=== PATIENT | male | born 1950 | race Caucasian/White ===

== ENCOUNTER 2018-04-22 13:19 | Observation (INO) ==
--- NOTE | 2018-04-22 13:30 | Emergency Department Note ---
ED Disposition Clinical Impression: Palpitations Vomiting Qualifiers: Vomiting type: unspecified Vomiting Intractability: non-intractable Nausea presence: with nausea Qualified Code(s): R11.2 - Nausea with vomiting, un specified Disposition: Still a Patient Condition on Discharge: Fair - Critical Care Critical Care Time: No Attestation: On , the high probability of a clinically significant, sudden or life threatening deterioration of the following system(s) required my full and direct attention, intervention and personal management. The time I documented below is in addition to time spent performing reported procedures but includes the following listed in this critical care notation. Medical Decision Making - [place] Inquiry Pt receiving controlled substance: No Vital Signs: 04/22/18 13:25 04/22/18 14:19 04/22/18 16:24 Temperature 98.2 F 98.3 F Temperature Source Oral Temporal Artery Scan Pulse Rate 97 H Pulse Rate [Right Brachial] 78 56 L Respiratory Rate 18 17 Blood Pressure 133/76 Blood Pressure [Right Arm] 179/76 H 120/74 Blood Pressure Mean [Right Arm] 110 89 Blood Pressure Source Automatic Cuff Blood Pressure Source [Right Arm] Automatic Cuff Automatic Cuff Blood Pressure Position Sitting Blood Pressure Position [Right Arm] Sitting Sitting 02 Sat by Pulse Oximetry 95 96 Oxygen Delivery Method Room Air Room Air - Lab Data Lab Results 04/22/18 13:30: WBC 13.8 H, RBC 5.41, Hgb 16.3, Hct 48.8, MCV 90.3, MCH 30.1, MCHC 33.3, RDW 13.2, Plt Count 280, MPV 8.4, Neut % (Auto) 87.0 H, Lymph % (Auto) 8.7 L, [place] % (Auto) 3.3, Eos % (Auto) 0.6, Baso % (Auto) 0.4, Neut # (Auto) 12.0 H, Lymph # (Auto) 1.2, [place] # (Auto) 0.5, Eos # (Auto) 0.1, Baso # (Auto) 0.1, Total Counted 100, Neutrophils % (Manual) 87 H, Lymphocytes % (Manual) 9 L, Monocytes % (Manual) 4, Platelet Estimate Normal, RBC Morphology Normal 04/22/18 13:30: Sodium 138, Potassium 3.5, Chloride 103, Carbon Dioxide 25, Anion Gap 13.5, BUN 16, Creatinine 0.88, Estimated Creat Clear 105, Estimated GFR 86, Est GFR ( Amer) 104, Glucose 135 H, Calcium 9.4, Troponin I < 0.02 Result diagrams: 04/22/18 13:30 04/22/18 13:30 Orders (Tests/Meds): ED MEDICATIONS Discontinued Medications Generic Name Dose Route Start Last Admin Trade Name Freq PRN Reason Stop Dose Admin Ondansetron HCl 4 mg 04/22/18 15:45 04/22/18 15:50 Zofran 4mg/2ml Vial IV 04/22/18 15:46 4 mg ONCE ONE Administration ORDERS Category Date Time Status Magnesium Stat Lab 04/22/18 13:30 Received - Radiology Data #1 Image(s): Chest Image Reviewed: Yes I have reviewed radiologist's interpretation FINDINGS: The cardiomediastinal silhouette and pulmonary vascularity are within normal limits. The lungs are clear without infiltrates, suspicious nodules, or pleural effusions. No acute bony abnormalities. There is a total shoulder prosthesis right side. IMPRESSION: Negative chest, no acute finding Dictated By: Luis Arredondo Signed By: <Electronically signed by Luis Arredondo in [place]> 04/22/18 1419 - ECG Data Tracing #1 EKG interpreted by Evert Oseguera MD: Rhythm: sinus Rate: 84 [place]: normal Ectopy: none Conduction: normal ST Segment Changes: none T Wave Changes: Nonspecific, 1 and aVL. Q Waves: none Prior electrocardiagrams reviewed. No change from prior tracings. T wave changes are present on some prior tracings. - Physician Consults Physician Consulted: [place] Time: 15:47 Reason -: Admission Comment/Response: He has not seen the patient in over a year. Atenolol was started, apparently by cardiology, since the last time he saw the patient. Prefers to admit the patient to the hospital. We discussed the patient's clinical information, including history, exam, laboratory and radiology results and ED course. Per hospital procedure, I will write temporary bridge inpatient orders on the patient. Specific orders requested by the admitting physician: campus monitor, cardiology consult - Reevaluation(s) Time: 15:49 Reevaluation #1: profuse vomiting Medical Decision Narrative: campus monitor shows sinus rhythm with sinus arrhythmia and premature atrial contractions. Prior Heart Cath: IMPRESSION: 1. Moderate coronary artery disease as described above 2. Hyperdynamic ventricle consistent with hypertensive heart disease 3. Moderately elevated LVEDP PLAN: 1. Medical management is most warranted. 2. Increase antianginal medications 3. Treat hypertension 4. Risk factor modification 5. LDL less than 55 6. Avoidance of tobacco products 7. Patient would probably benefit from diltiazem and or verapamil with possible low dose diuretics such as Lasix and spironolactone in order to decrease LVEDP <Electronically signed by Joaquim See MD in [place]> 03/21/17 1159 General Adult HPI - General Chief complaint: Chest Pain Stated complaint: heart palpitations Time Seen by Provider: 04/22/18 14:30 - History of Present Illness HPI narrative: Complains of palpitations. This is an ongoing problem, he has had it for years. He is on a beta-jean for that condition. He states that he has had increased palpitations for 2 weeks, worse today. Caused him to be nauseated and throw up, feels his heart beating up into his throat. Denies chest pain or shortness of breath. States he has increased his dose of atenolol to twice a day for the past 3-4 days because of the increased palpitations. States had a cardiac cath by Dr. See a couple of years ago, 30-40% blockages, no stents. - Related Data Home Medications Medication Instructions Recorded Confirmed aspirin 81 mg tablet,delayed 81 mg PO QDAY 05/02/17 04/22/18 release atenolol 25 mg tablet 25 mg PO QDAY tab 05/02/17 04/22/18 atorvastatin 40 mg tablet 40 mg PO QDAY 05/02/17 04/22/18 glipizide 5 mg tablet 5 mg PO DAILY 05/02/17 04/22/18 lisinopril 20 1 tab PO QDAY 05/02/17 04/22/18 mg-hydrochlorothiazide 12.5 mg tablet omeprazole 20 mg capsule,delayed 20 mg PO ONCE 05/02/17 04/22/18 release Insulin Aspart [Novolog] 50 unit SQ BID 02/26/18 04/22/18 Metformin HCl [Fortamet] 500 mg PO DAILY 02/26/18 04/22/18 glipiZIDE [Glipizide ER] 5 mg PO DAILY 02/26/18 04/22/18 Allergies Allergy/AdvReac Type Severity Reaction Status Date / Time No Known Allergies Allergy Unverified 04/15/17 14:40 [facility] History - Hepatitis A Screen Attestation statement:: This patient has been screened for Hepatitis A risk factors. I have reviewed the patient's past medical history: Yes Medical History: Reports:: Coronary Artery Disease, Diabetes Mellitus Type 2, Hyperlipidemia, Hypertension Denies:: Cancer, Diabetes Mellitus Type 1, MRSA Amputation: No Comment: gallbladder removal, knee replacement, shoulder replacement, heart cath - Social History Smoking Status: Former smoker Alcohol Intake: never Family Hx:: Non-contributory (Radhames Parkinson White in a sibling), Cancer, Coronary Artery Disease ROS Obtained: Yes All systems reviewed & no additional complaints - Cardiovascular Cardiovascular: Denies chest pain, Reports palpitations - Gastrointestinal Gastrointestingal: Reports: nausea, vomiting. Denies: abdominal pain, diarrhea Physical Exam - General General appearance: alert, in no apparent distress - Head Head exam: atraumatic, normocephalic - ENT ENT exam: Present: mucous membranes moist - Neck Neck exam: Present: normal inspection, trachea midline - Chest Chest inspection: Present: normal inspection, symmetric chest wall rise - Respiratory Respiratory exam: Present: normal lung sounds bilaterally. Absent: respiratory distress - Cardiovascular Cardiovascular exam: Present: regular rate, normal heart sounds, other (Extrasystoles during exam) - Abdominal Exam Abdominal exam: Present: soft. Absent: distention, tenderness - Extremities Exam Extremities exam: Present: normal inspection. Absent: calf tenderness - Neurological Exam Neurological exam: Present: alert, oriented X3 - Psychiatric Psychiatric exam: Present: normal affect, normal mood - Skin Skin exam: Present: warm, dry
[2018-04-22 14:10] LABS: Basophils # 0.1 K/mm3 (0-0.2); Basophils % 0.4 % (0.1-2.0); Eosinophils # 0.1 K/mm3 (0.0-0.4); Eosinophils % 0.6 % (0.1-12.0); Hematocrit 48.8 % (42.0-52.0); Hemoglobin 16.3 g/dL (14.1-18.0); Lymphocytes # 1.2 K/mm3 (0.7-4.5); Lymphocytes % 8.7 % (10-50); Mean Corpuscular HGB Conc 33.3 g/dL (31.8-35.4); Mean Corpuscular Hemoglobin 30.1 pg (27.0-31.2); Mean Corpuscular Volume 90.3 fl (80-94); Mean Platelet Volume 8.4 fl (7.4-10.4); Monocytes # 0.5 K/mm3 (0.1-1.0); Monocytes % 3.3 % (1.7-9.3); Platelet Count 280 K/mm3 (142-424); Red Blood Count 5.41 M/mm3 (4.60-6.20); Red Cell Distribution Width 13.2 % (11.5-17.5); White Blood Count 13.8 K/mm3 (4.8-10.8)
[2018-04-22 14:17] LABS: Anion Gap 13.5 mEq/L (5-15); Blood Urea Nitrogen 16 mg/dL (7-18); Calcium 9.4 mg/dL (8.5-10.1); Carbon Dioxide 25 mmol/L (21.0-32.0); Chloride 103 mmol/L (98-107); Glucose 135 mg/dL (74-106); Potassium 3.5 mmoL/L (3.5-5.1); Sodium 138 mmol/L (136-145)
[2018-04-22 14:21] LABS: Lymphocytes % 9 % (10-50); Monocytes % 4 % (2-9); Neutrophils % 87 % (42-76); RBC Morphology Normal; Total Cells Counted 100
--- NOTE | 2018-04-22 17:17 | History & Physical Report ---
*Admission Date: 04/22/18 *Chief complaint: palpitations, vomiting *History of present illness: Mr. Oneill is a 68-year-old male who has had palpitations for years and used to be seen by Dr. Hernandez. Dr. Hernandez placed him on atenolol and he has not had problems with palpitations and flutters up until 3 weeks ago. He states he has had constant flutters for 3 weeks and this causes him to get nauseated. He presented to the emergency room today for evaluation and did vomit 3 times while in the ER. He states his acid reflux has been worse over the past 3 weeks as well. It was felt he would need to be admitted and monitored overnight with a cardiology consult. He has seen Dr. See in the past and had a heart cath. No stents were placed at that time. [facility] History Medical History: Reports:: Arrhythmia, Coronary Artery Disease, Diabetes Mellitus Type 2, Gastroesophageal Reflux Disease(GERD), Hyperlipidemia, Hypertension Denies:: Cancer, Diabetes Mellitus Type 1, MRSA Other Medical History: Reports: Cataracts Laterality Cases: Left: Partial Knee Replacement, Right: Arthroscopy Shoulder, Total Knee Replacement Other Surgeries: Yes: Cardiac Catheterization, Cholecystectomy, Colonoscopy Amputation: No Fractures: Yes ((L) leg) - *Social History Educational Level: Completed High School Smoking Status: Former smoker Alcohol Intake: never Occupational Status: retired Housing: house Household Members: spouse - Psychiatric History Expresses thoughts of harming self/others: None Suicide Plan Description: No Plan *Family Hx:: Cancer, Coronary Artery Disease, Diabetes, Hyperlipidemia, Hypertension Review of Systems - Constitutional Denies chills, Denies fever(s), Denies weakness - Eyes Denies blurry vision, Denies double vision - ENT Denies nasal congestion, Denies sore throat - *Cardiovascular Reports rapid, pounding, or irregular heartbeat, Denies chest pain - *Respiratory Denies cough, Denies shortness of breath - *Gastrointestinal Reports nausea, Reports vomiting, Denies abdominal pain, Denies loose stools - *Genitourinary Denies difficulty urinating, Denies painful urination - *Musculoskeletal Denies joint pain - *Neurologic Denies headache(s), Denies dizziness, Denies weakness Meds Home Medications Medication Instructions Recorded Confirmed Type aspirin 81 mg tablet,delayed 325 mg PO QDAY 05/02/17 04/22/18 History release atenolol 25 mg tablet 25 mg PO QDAY tab 05/02/17 04/22/18 History atorvastatin 40 mg tablet 40 mg PO QDAY 05/02/17 04/22/18 History glipizide 5 mg tablet 5 mg PO DAILY 05/02/17 04/22/18 History lisinopril 20 1 tab PO QDAY 05/02/17 04/22/18 History mg-hydrochlorothiazide 12.5 mg tablet omeprazole 20 mg capsule,delayed 20 mg PO BID 05/02/17 04/22/18 History release Insulin Aspart [Novolog] 50 unit SQ BID 02/26/18 04/22/18 History Metformin HCl [Fortamet] 1,000 mg PO DAILY 02/26/18 04/22/18 History Allergies Allergy/AdvReac Type Severity Reaction Status Date / Time No Known Allergies Allergy Verified 04/22/18 16:31 Exam Vital signs and Labs for Last 24 Hours: Temp Pulse Resp BP Pulse Ox 97.7 F 87 18 142/73 H 93 L 04/22/18 16:47 04/22/18 16:47 04/22/18 16:47 04/22/18 16:47 04/22/18 16:47 Laboratory Results - last 24 hr 04/22/18 13:30: WBC 13.8 H, RBC 5.41, Hgb 16.3, Hct 48.8, MCV 90.3, MCH 30.1, MCHC 33.3, RDW 13.2, Plt Count 280, MPV 8.4, Neut % (Auto) 87.0 H, Lymph % (Auto) 8.7 L, [place] % (Auto) 3.3, Eos % (Auto) 0.6, Baso % (Auto) 0.4, Neut # (Auto) 12.0 H, Lymph # (Auto) 1.2, [place] # (Auto) 0.5, Eos # (Auto) 0.1, Baso # (Auto) 0.1, Total Counted 100, Neutrophils % (Manual) 87 H, Lymphocytes % (Manual) 9 L, Monocytes % (Manual) 4, Platelet Estimate Normal, RBC Morphology Normal 04/22/18 13:30: Sodium 138, Potassium 3.5, Chloride 103, Carbon Dioxide 25, Anion Gap 13.5, BUN 16, Creatinine 0.88, Estimated Creat Clear 105, Estimated GFR 86, Est GFR ( Amer) 104, Glucose 135 H, Calcium 9.4, Troponin I < 0.02 04/22/18 13:30: Magnesium 1.6 I & O for Last 24 hours: Intake & Output 04/20/18 04/21/18 04/22/18 04/23/18 11:59 11:59 11:59 11:59 Intake Total 1000 / 1000 Balance 1000 / 1000 Weight 229 lb 6.996 oz - Constitutional no acute distress - *Routine HEENT Exam Head: Present: normocephalic Eye: Present: EOMI, PERRL ENT: Present: mucous membranes moist - *Routine Neck Exam Present: supple. Absent: lymphadenopathy - *Routine Respiratory Exam Present: CTA bilaterally - *Routine Cardiovascular Exam Present: RRR (with frequent ectopics) - *Routine Abdominal Exam Present: soft, normoactive bowel sounds. Absent: tenderness - *Routine Extremities Exam Absent: cyanosis, clubbing, edema - *Routine Skin Exam Present: warm. Absent: rash - *Routine Neurological Exam Present: alert, oriented X3 H&P: Result - Impressions CXR - nothing acute Assessment and Plan (1) Sinus arrhythmia Current visit: No Status: Acute Category: Medical Code(s): I49.8 - Other specified cardiac arrhythmias (2) Palpitations Current visit: Yes Status: Acute Category: Medical Code(s): R00.2 - Palpitations (3) Vomiting Current visit: Yes Status: Acute Qualifiers: Vomiting type: unspecified Vomiting Intractability: non-intractable Nausea presence: with nausea Qualified Code(s): R11.2 - Nausea with vomiting, unspecified Category: Medical Code(s): R11.10 - Vomiting, unspecified (4) CAD (coronary artery disease) Current visit: No Status: Chronic Category: Medical Code(s): I25.10 - Atherosclerotic heart disease of [place] coronary artery without angina pectoris (5) HLD (hyperlipidemia) Current visit: No Status: Chronic Category: Medical Code(s): E78.5 - Hyperlipidemia, unspecified (6) HTN (hypertension) Current visit: No Status: Chronic Category: Medical Code(s): I10 - Essential (primary) hypertension - Assessment and plan all Dx Assessment and Plan for all problems:: Patient will be admitted and started on a cafeteria monitor. Cardiology will be consulted.
[2018-04-23 07:05] LABS: Basophils % 0.3 % (0.1-2.0); Eosinophils # 0.1 K/mm3 (0.0-0.4); Eosinophils % 0.4 % (0.1-12.0); Hemoglobin 15.8 g/dL (14.1-18.0); Lymphocytes # 0.7 K/mm3 (0.7-4.5); Mean Corpuscular HGB Conc 33.6 g/dL (31.8-35.4); Mean Corpuscular Hemoglobin 30.6 pg (27.0-31.2); Mean Corpuscular Volume 91.2 fl (80-94); Mean Platelet Volume 8.5 fl (7.4-10.4); Monocytes # 0.4 K/mm3 (0.1-1.0); Monocytes % 3.7 % (1.7-9.3); Neutrophils # 10.3 K/mm3 (1.8-7.8); Neutrophils % 89.4 % (37.0-80.0); Platelet Count 233 K/mm3 (142-424); Red Blood Count 5.16 M/mm3 (4.60-6.20); Red Cell Distribution Width 13.2 % (11.5-17.5); White Blood Count 11.5 K/mm3 (4.8-10.8)
[2018-04-23 07:14] LABS: Anion Gap 15.6 mEq/L (5-15); Calcium 8.5 mg/dL (8.5-10.1); Potassium 3.6 mmoL/L (3.5-5.1)
--- NOTE | 2018-04-23 07:41 | Consult Report ---
History of Present Illness Consult date: 04/23/18 Requesting physician: Blake Ta Chief complaint: Palpitations Additional Medical History:: 1. Diabetes mellitus, type II, treated for about 6 yrs 2. Hypertension, on both HANH and beta jean. 3. 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 4. Hyperlipidemia, on statin 5. Strong family history of coronary artery disease in older siblings all of which have had coronary bypass grafting in their 50s or 60s. A. Daily ASA use B. Cardiac cath, 02/2017, 1. The left main artery normal 2. The left anterior descending artery has proximal 20-30% concentric stenosis with mid vessel 40% stenosis and distal 30% stenoses 3. The circumflex artery is a dominant vessel and gives rise to a ramus intermedius which has mild 30% stenoses. The mid segment also has 20% stenoses. The terminal 2.5 mm obtuse marginal artery has a proximal concentric 60% stenosis 4. The right coronary artery is a nondominant yet still large vessel and has 30% proximal stenoses mid vessel 30-40% stenoses distal 40% concentric stenosis. The large terminal posterior descending artery has a mid vessel 50-60% stenosis 5. The WOO ventriculogram reveals hyperdynamic at 75% 6. The left ventricular end-diastolic pressure elevated at 25 mmHg 7. Medical therapy for CAD and hyperdynamic left ventricular ejection fraction with combination of verapamil and beta-jean. Low-dose diuretic for elevated LVEDP. 6. Abnormal electrocardiogram with possible anterior myocardial infarction pattern. A. Echo and GXT myoview, 05/2016, no ischemia, normal LVEF. No significant valve abnormalities. B. Echo, 02/2017, 2D 1. Technically difficult study because of the patient's factor and poor acoustic Windows. 2. The left atrium is qualitatively mildly enlarged, left ventricle is normal size, there is mild concentric left ventricular hypertrophy present, visually estimated to fraction 55% with no obvious regional wall motion abnormality, endocardial surface is poorly visualized. 3. The right atrium and right ventricle are normal size and contractility. 4. The aortic valve is minimally thickened fibrosed, consistent with mild aortic sclerosis. 5. The mitral and tricuspid is structurally normal. 6. The pulmonic valve not well visualized. 7. No significant pericardial effusion noted. DOPPLER INTERROGATION: Doppler interrogation of the aortic mitral and tricuspid valvular presence of mild mitral and tricuspid regurgitation, grade 1 diastolic dysfunction seen without tissue Doppler evidence of raised left atrial pressure. CONCLUSION: 1. Normal left ventricular size, mild concentric left ventricular hypertrophy, visually estimated to fraction 55% with no obvious regional wall motion abnormality. Doppler evidence of grade 1 diastolic dysfunction without raised left atrial pressure. 2. Mild mitral and tricuspid regurgitation. 3. No significant pericardial effusion noted 7. Chronic back pain 8. History of cholecystectomy 9. History of yearly colonoscopy due to recurrent polyps 10. Gastroesophageal reflux disease, on PPI History of present illness: 68-year-old white male with history of coronary artery disease, hypertension, diabetes and palpitations presented to the emergency department for evaluation. Patient relates several weeks history of increasing palpitations associated with indigestion and occasional vomiting for relief. Symptoms are not accompanied by chest pain, pressure or tightness. They do not seem to be activity related. Patient was last seen in our office in March 2017 at which time he was prescribed a combination of verapamil and atenolol for the palpitations, coronary artery disease and hypertension. Patient relates he has been taken the atenolol but does not recall being prescribed the verapamil. He was admitted through the emergency department yesterday for increasing palpitations and cardiology evaluation. Overnight troponins have returned normal. Telemetry shows frequent PACs. Electrolytes are within normal limits including magnesium level. [facility] History Medical History: Reports:: Arrhythmia, Coronary Artery Disease, Diabetes Mellitus Type 2, Gastroesophageal Reflux Disease(GERD), Hyperlipidemia, Hypertension Denies:: Cancer, Diabetes Mellitus Type 1, MRSA Other Medical History: Reports: Cataracts Laterality Cases: Left: Partial Knee Replacement, Right: Arthroscopy Shoulder, Total Knee Replacement Other Surgeries: Yes: Cardiac Catheterization, Cholecystectomy, Colonoscopy Amputation: No Fractures: Yes ((L) leg) - *Social History Educational Level: Completed High School Smoking Status: Former smoker Alcohol Intake: never Occupational Status: retired Housing: house Household Members: spouse - Psychiatric History Expresses thoughts of harming self/others: None Suicide Plan Description: No Plan *Family Hx:: Cancer, Coronary Artery Disease, Diabetes, Hyperlipidemia, Hypertension Meds Home Medications Medication Instructions Recorded Confirmed Type aspirin 81 mg tablet,delayed 325 mg PO QDAY 05/02/17 04/22/18 History release atenolol 25 mg tablet 25 mg PO QDAY tab 05/02/17 04/22/18 History atorvastatin 40 mg tablet 40 mg PO QDAY 05/02/17 04/22/18 History glipizide 5 mg tablet 5 mg PO DAILY 05/02/17 04/22/18 History lisinopril 20 1 tab PO QDAY 05/02/17 04/22/18 History mg-hydrochlorothiazide 12.5 mg tablet omeprazole 20 mg capsule,delayed 20 mg PO BID 05/02/17 04/22/18 History release Insulin Aspart [Novolog] 50 unit SQ BID 02/26/18 04/22/18 History Metformin HCl [Fortamet] 1,000 mg PO DAILY 02/26/18 04/22/18 History Allergies Allergy/AdvReac Type Severity Reaction Status Date / Time No Known Allergies Allergy Verified 04/22/18 16:31 Review of Systems - *Cardiovascular Reports irregular heart rhythm, Denies chest pain - *Respiratory Denies cough, Denies shortness of breath - *Gastrointestinal Reports belching, Reports bloating, Reports heartburn, Denies abdominal pain, Denies constipation, Denies loose stools - *Genitourinary Denies blood in urine - *Musculoskeletal Reports back pain - *Neurologic Denies headache(s), Denies dizziness, Denies weakness Exam Vital signs and Labs for Last 24 Hours: Temp Pulse Resp BP Pulse Ox 98.8 F 83 17 128/66 95 04/23/18 04:00 04/23/18 04:00 04/23/18 04:00 04/23/18 04:00 04/23/18 04:00 Laboratory Results - last 24 hr 04/22/18 13:30: WBC 13.8 H, RBC 5.41, Hgb 16.3, Hct 48.8, MCV 90.3, MCH 30.1, MCHC 33.3, RDW 13.2, Plt Count 280, MPV 8.4, Neut % (Auto) 87.0 H, Lymph % (Auto) 8.7 L, [place] % (Auto) 3.3, Eos % (Auto) 0.6, Baso % (Auto) 0.4, Neut # (Auto) 12.0 H, Lymph # (Auto) 1.2, [place] # (Auto) 0.5, Eos # (Auto) 0.1, Baso # (Auto) 0.1, Total Counted 100, Neutrophils % (Manual) 87 H, Lymphocytes % (Manual) 9 L, Monocytes % (Manual) 4, Platelet Estimate Normal, RBC Morphology Normal 04/22/18 13:30: Sodium 138, Potassium 3.5, Chloride 103, Carbon Dioxide 25, Anion Gap 13.5, BUN 16, Creatinine 0.88, Estimated Creat Clear 105, Estimated GFR 86, Est GFR ( Amer) 104, Glucose 135 H, Calcium 9.4, Troponin I < 0.02 04/22/18 13:30: Magnesium 1.6 04/22/18 15:15: POC Glucose 137 H 04/22/18 17:28: POC Glucose 173 H 04/22/18 19:10: Troponin I < 0.02 04/22/18 19:10: Hemoglobin A1c 7.3 H 04/22/18 20:13: POC Glucose 96 04/22/18 21:37: POC Glucose 193 H 04/22/18 22:19: Troponin I < 0.02 04/23/18 06:25: WBC 11.5 H, RBC 5.16, Hgb 15.8, Hct 47.0, MCV 91.2, MCH 30.6, MCHC 33.6, RDW 13.2, Plt Count 233, MPV 8.5, Neut % (Auto) 89.4 H, Lymph % (Auto) 6.0 L, [place] % (Auto) 3.7, Eos % (Auto) 0.4, Baso % (Auto) 0.3, Neut # (Auto) 10.3 H, Lymph # (Auto) 0.7, [place] # (Auto) 0.4, Eos # (Auto) 0.1, Baso # (Auto) 0.0 04/23/18 06:25: Sodium 137, Potassium 3.6, Chloride 100, Carbon Dioxide 25, Anion Gap 15.6 H, BUN 22 H D, Creatinine 1.04, Estimated Creat Clear 99, Estimated GFR 71, Est GFR ( Amer) 86, Glucose 205 H D, Calcium 8.5 04/23/18 06:30: POC Glucose 195 H I & O for Last 24 hours: Intake & Output 04/20/18 04/21/18 04/22/18 04/23/18 11:59 11:59 11:59 11:59 Intake Total 2356 / 2356 Output Total 300 / 300 Balance 2055 Weight 229 lb 6.996 oz - *Routine Neck Exam Present: supple. Absent: JVD, carotid bruit - *Routine Respiratory Exam Present: CTA bilaterally. Absent: accessory muscle use, rales, rhonchi, wheezes - *Routine Cardiovascular Exam Present: RRR. Absent: murmur, gallop, rubs - *Routine Abdominal Exam Present: soft. Absent: tenderness, distended, guarding - *Routine Extremities Exam Absent: edema, calf tenderness - *Routine Neurological Exam Present: alert, oriented X3, moving all extremities Assessment and Plan (1) Sinus arrhythmia Current visit: No Status: Acute Category: Medical Code(s): I49.8 - Other specified cardiac arrhythmias (2) Palpitations Current visit: Yes Status: Acute Category: Medical Code(s): R00.2 - Palpitations (3) Vomiting Current visit: Yes Status: Acute Qualifiers: Vomiting type: unspecified Vomiting Intractability: non-intractable Nausea presence: with nausea Qualified Code(s): R11.2 - Nausea with vomiting, unspecified Category: Medical Code(s): R11.10 - Vomiting, unspecified (4) CAD (coronary artery disease) Current visit: No Status: Chronic Category: Medical Code(s): I25.10 - Atherosclerotic heart disease of [place] coronary artery without angina pectoris (5) HLD (hyperlipidemia) Current visit: No Status: Chronic Category: Medical Code(s): E78.5 - Hyperlipidemia, unspecified (6) HTN (hypertension) Current visit: No Status: Chronic Category: Medical Code(s): I10 - Essential (primary) hypertension (7) Diabetes Current visit: Yes Status: Acute Category: Medical Code(s): E11.9 - Type 2 diabetes mellitus without complications - Assessment and plan all Dx Assessment and Plan for all problems:: 1. Will obtain an echocardiogram to reevaluate left ventricular ejection fraction, history of hyperdynamic left ventricular function and history of elevated left ventricular end-diastolic pressure. 2. With normal troponins and cardiac cath 1 year ago showing mild to moderate coronary artery disease, would not pursue further evaluation at this time. 3. We will restart verapamil 120 mg daily in addition to the patient's atenolol. 4. Patient may require further GI evaluation with history of indigestion and vomiting. Concern for diabetic gastroparesis. 5. Patient could be discharged home later today from a cardiology standpoint. 6. Would like to see him back in 1-2 weeks in our office.
--- NOTE | 2018-04-23 08:09 | Pharmacy Consult Notes ---
[facility] Pharmacy VTE Monitoring - Patient Demographics Admission date: 04/22/18 Report Date: 04/23/18 Time: 08:09 Allergies/Adverse Reactions: Patient Allergies No Known Allergies Allergy (Verified 04/22/18 16:31) Height: 1.7 m Weight: 104.071 kg Patient Problems: Current Active Problems Palpitations (Acute) Vomiting (Acute) Diabetes (Acute) - VTE Risk Labs: VTE Related Lab Results Hgb 15.8 g/dL (14.1-18.0) 04/23/18 06:25 Hct 47.0 % (42.0-52.0) 04/23/18 06:25 Plt Count 233 K/mm3 (142-424) 04/23/18 06:25 BUN 22 mg/dL (7-18) H D 04/23/18 06:25 Creatinine 1.04 mg/dL (0.70-1.30) 04/23/18 06:25 Estimated Creat Clear 99 mL/min (50-200) 04/23/18 06:25 Was VTE Risk Assessment Performed: Yes VTE Score: 1 VTE Risk Level: Very Low Risk - Prophylaxis VTE Prophylaxis Ordered?: Yes Types of VTE Prophylaxis: TEDS Knee High Location of Applied Device: Bilateral Lower Extremeties - VTE Diagnosis Confirmed Treatment or plan recommended: Continue Current Treatment
--- NOTE | 2018-04-23 08:23 | Progress Note ---
Internal Medicine - PN: Subj *Date: 04/23/18 *Time: 08:20 Interval history: Patient states he is feeling better this morning. His palpitations have improved slightly. He was up vomiting all night. He states he has not vomited this morning. He was seen by cardiology and an echo was ordered. He was started on verapamil in addition to his atenolol. Exam Vital signs and Labs for Last 24 Hours: Temp Pulse Resp BP Pulse Ox 98.8 F 83 17 128/66 95 04/23/18 04:00 04/23/18 04:00 04/23/18 04:00 04/23/18 04:00 04/23/18 04:00 Laboratory Results - last 24 hr 04/22/18 13:30: WBC 13.8 H, RBC 5.41, Hgb 16.3, Hct 48.8, MCV 90.3, MCH 30.1, MCHC 33.3, RDW 13.2, Plt Count 280, MPV 8.4, Neut % (Auto) 87.0 H, Lymph % (Auto) 8.7 L, [place] % (Auto) 3.3, Eos % (Auto) 0.6, Baso % (Auto) 0.4, Neut # (Auto) 12.0 H, Lymph # (Auto) 1.2, [place] # (Auto) 0.5, Eos # (Auto) 0.1, Baso # (Auto) 0.1, Total Counted 100, Neutrophils % (Manual) 87 H, Lymphocytes % (Manual) 9 L, Monocytes % (Manual) 4, Platelet Estimate Normal, RBC Morphology Normal 04/22/18 13:30: Sodium 138, Potassium 3.5, Chloride 103, Carbon Dioxide 25, Anion Gap 13.5, BUN 16, Creatinine 0.88, Estimated Creat Clear 105, Estimated GFR 86, Est GFR ( Amer) 104, Glucose 135 H, Calcium 9.4, Troponin I < 0.02 04/22/18 13:30: Magnesium 1.6 04/22/18 15:15: POC Glucose 137 H 04/22/18 17:28: POC Glucose 173 H 04/22/18 19:10: Troponin I < 0.02 04/22/18 19:10: Hemoglobin A1c 7.3 H 04/22/18 20:13: POC Glucose 96 04/22/18 21:37: POC Glucose 193 H 04/22/18 22:19: Troponin I < 0.02 04/23/18 06:25: WBC 11.5 H, RBC 5.16, Hgb 15.8, Hct 47.0, MCV 91.2, MCH 30.6, MCHC 33.6, RDW 13.2, Plt Count 233, MPV 8.5, Neut % (Auto) 89.4 H, Lymph % (Auto) 6.0 L, [place] % (Auto) 3.7, Eos % (Auto) 0.4, Baso % (Auto) 0.3, Neut # (Auto) 10.3 H, Lymph # (Auto) 0.7, [place] # (Auto) 0.4, Eos # (Auto) 0.1, Baso # (Auto) 0.0 04/23/18 06:25: Sodium 137, Potassium 3.6, Chloride 100, Carbon Dioxide 25, Anion Gap 15.6 H, BUN 22 H D, Creatinine 1.04, Estimated Creat Clear 99, Estimated GFR 71, Est GFR ( Amer) 86, Glucose 205 H D, Calcium 8.5 04/23/18 06:30: POC Glucose 195 H I & O for Last 24 hours: Intake & Output 04/20/18 04/21/18 04/22/18 04/23/18 11:59 11:59 11:59 11:59 Intake Total 2356 / 2356 Output Total 300 / 300 Balance 2055 / 2055 Weight 229 lb 7 oz - Constitutional no acute distress - *Routine Respiratory Exam Present: CTA bilaterally - *Routine Cardiovascular Exam Present: RRR (with frequent ectopics) - *Routine Abdominal Exam Present: soft, normoactive bowel sounds. Absent: tenderness - *Routine Extremities Exam Absent: cyanosis, clubbing, edema - *Routine Neurological Exam Present: alert, oriented X3 Assessment and Plan (1) Sinus arrhythmia Current visit: No Status: Acute Category: Medical Code(s): I49.8 - Other specified cardiac arrhythmias (2) Palpitations Current visit: Yes Status: Acute Category: Medical Code(s): R00.2 - Palpitations (3) Vomiting Current visit: Yes Status: Acute Qualifiers: Vomiting type: unspecified Vomiting Intractability: non-intractable Nausea presence: with nausea Qualified Code(s): R11.2 - Nausea with vomiting, unspecified Category: Medical Code(s): R11.10 - Vomiting, unspecified (4) CAD (coronary artery disease) Current visit: No Status: Chronic Category: Medical Code(s): I25.10 - Atherosclerotic heart disease of [place] coronary artery without angina pectoris (5) HLD (hyperlipidemia) Current visit: No Status: Chronic Category: Medical Code(s): E78.5 - Hyperlipidemia, unspecified (6) HTN (hypertension) Current visit: No Status: Chronic Category: Medical Code(s): I10 - Essential (primary) hypertension (7) Diabetes Current visit: Yes Status: Acute Category: Medical Code(s): E11.9 - Type 2 diabetes mellitus without complications - Assessment and plan all Dx Assessment and Plan for all problems:: Cardiology ordered an echo and started patient on verapamil in addition to the atenolol. They feel he may need evaluation for diabetic gastroparesis due to his abdominal pain and vomiting. Patient states his abdominal pain has resolved this morning and he has not vomited for a few hours. Will await echo results and discuss further care with Dr. cedeño.
[2018-04-23 08:53] LABS: Eosinophils % 1 % (0-3); Lymphocytes % 5 % (10-50); Monocytes % 2 % (2-9); Neutrophils % 91 % (42-76); Total Cells Counted 100
[2018-04-23 08:54] LABS: RBC Morphology Normal
[2018-04-23 10:39] LABS: Amylase 27 U/L (25-115); Lipase 54 u/L (73-393)
[2018-04-23 16:11] LABS: Microscopic, Urine URINE MICROSCOPIC (MICROSCOPIC)
[2018-04-23 16:20] LABS: Appearance,Urine CLEAR (Clear); Bilirubin,Urine Negative (Negative); Blood, Urine Negative (Negative); Color,Urine YELLOW (Yellow); Glucose,Urine (UA) Negative (Negative); Ketones,Urine Negative (Negative); Leukocyte Esterase,Urine Negative (Negative); Protein,Urine Negative (Negative); Specific Gravity, Urine 1.025 (1.005-1.030); Urobilinogen,Urine 0.2 EU/dl (0.2)
[2018-04-23 16:32] LABS: Bacteria,Urine Trace /lpf; Squamous Epithelial Cell,Urine Occasional #/hpf (0-5)
[2018-04-24 07:18] LABS: Basophils % 0.4 % (0.1-2.0); Eosinophils # 0.1 K/mm3 (0.0-0.4); Eosinophils % 1.8 % (0.1-12.0); Hematocrit 43.9 % (42.0-52.0); Hemoglobin 14.8 g/dL (14.1-18.0); Lymphocytes # 1.3 K/mm3 (0.7-4.5); Mean Corpuscular HGB Conc 33.7 g/dL (31.8-35.4); Mean Corpuscular Hemoglobin 30.2 pg (27.0-31.2); Mean Corpuscular Volume 89.4 fl (80-94); Mean Platelet Volume 8.3 fl (7.4-10.4); Monocytes # 0.5 K/mm3 (0.1-1.0); Monocytes % 7.3 % (1.7-9.3); Neutrophils # 4.7 K/mm3 (1.8-7.8); Neutrophils % 70.4 % (37.0-80.0); Platelet Count 226 K/mm3 (142-424); Red Blood Count 4.91 M/mm3 (4.60-6.20); Red Cell Distribution Width 13.1 % (11.5-17.5); White Blood Count 6.7 K/mm3 (4.8-10.8)
[2018-04-24 07:25] LABS: Anion Gap 16.4 mEq/L (5-15); Calcium 8.1 mg/dL (8.5-10.1); Potassium 3.4 mmoL/L (3.5-5.1)
--- NOTE | 2018-04-24 08:05 | Progress Note ---
Subjective Date: 04/24/18 Time: 08:03 Principal diagnosis: Palpitations Interval history: 68-year-old white male in bed in no acute distress. Palpitations have significantly improved with the addition of verapamil. Patient is wanting to go home today. Telemetry shows sinus rhythm with PACs. Exam Vital signs and Labs for Last 24 Hours: Temp Pulse Resp BP Pulse Ox 98.2 F 66 17 127/51 L 95 04/24/18 04:00 04/24/18 04:00 04/24/18 04:00 04/24/18 04:00 04/24/18 04:00 Laboratory Results - last 24 hr 04/23/18 06:25: Total Counted 100, Neutrophils % (Manual) 91 H, Band Neutrophils % 1.0, Lymphocytes % (Manual) 5 L, Monocytes % (Manual) 2, Eosinophils % (Manual) 1, Platelet Estimate Normal, RBC Morphology Normal 04/23/18 06:25: Amylase 27, Lipase 54 L 04/23/18 11:45: POC Glucose 152 H 04/23/18 15:35: Urine Color Yellow, Urine Appearance Clear, Urine pH 6.0, Ur Specific Thermal 1.025, Urine Protein Negative, Urine Glucose (UA) Negative, Urine Ketones Negative, Urine Blood Negative, Urine Nitrate Negative, Urine Bilirubin Negative, Urine Urobilinogen 0.2, Ur Leukocyte Esterase Negative, Urine RBC None, Urine WBC 3-5, Ur Squamous Epith Cells Occasional, Urine Bacteria Trace 04/23/18 16:45: Stl Aeromonas (PCR) Not detected, Stl C. cayetanensis PCR Not detected, Stool Rotavirus (PCR) Not detected, Stl Adenov F 40/41 PCR Not detected, Stool Astrovirus (PCR) Not detected, Stool Campylobacter PCR Not detected, Stl C.difficile Tox PCR Not detected, Stool Cryptosporidium PCR Not detected, Stl E.coli Shiga Tox PCR Not detected, Stool E coli O157 PCR Not detected, Stl Enterotoxigenic E PCR Not detected, Stool EPEC (PCR) Not detected, Stool EAEC (PCR) Not detected, Stl E. histolytica PCR Not detected, Stool Giardia Lamblia PCR Not detected, Stool Salmonella PCR Not detected, Stool Sapovirus (PCR) Not detected, Stl P. shigelloides PCR Not detected, Stl Shigella/EIEC PCR Not detected, St Y.enterocolitica PCR Not detected, Stool Vibrio (PCR) Not detected, Stl Vibrio cholerae PCR Not detected, Stl Norovirus GI/GII PCR Detected A 04/23/18 16:56: POC Glucose 150 H 04/23/18 20:58: POC Glucose 153 H 04/24/18 05:23: POC Glucose 143 H 04/24/18 06:45: WBC 6.7 D, RBC 4.91, Hgb 14.8, Hct 43.9, MCV 89.4, MCH 30.2, MCHC 33.7, RDW 13.1, Plt Count 226, MPV 8.3, Neut % (Auto) 70.4, Lymph % (Auto) 20.0, [place] % (Auto) 7.3, Eos % (Auto) 1.8, Baso % (Auto) 0.4, Neut # (Auto) 4.7, Lymph # (Auto) 1.3, [place] # (Auto) 0.5, Eos # (Auto) 0.1, Baso # (Auto) 0.0 04/24/18 06:45: Sodium 139, Potassium 3.4 L, Chloride 102, Carbon Dioxide 24, Anion Gap 16.4 H, BUN 14 D, Creatinine 0.81 D, Estimated Creat Clear 103, Estimated GFR 94, Est GFR ( Amer) 114 D, Glucose 170 H, Calcium 8.1 L I & O for Last 24 hours: Intake & Output 04/21/18 04/22/18 04/23/18 04/24/18 11:59 11:59 11:59 11:59 Intake Total 2476 / 2476 1680 / 1680 Output Total 300 / 300 Balance 2176 / 2176 1680 / 1680 Weight 229 lb 7 oz - *Routine Respiratory Exam Present: CTA bilaterally. Absent: accessory muscle use, rales, rhonchi, wheezes - *Routine Cardiovascular Exam Present: RRR. Absent: murmur, gallop, rubs Progress Note: A&P (1) Sinus arrhythmia Status: Acute Current Visit: No (2) Palpitations Status: Acute Current Visit: Yes (3) Vomiting Status: Acute Current Visit: Yes (4) CAD (coronary artery disease) Status: Chronic Current Visit: No (5) HLD (hyperlipidemia) Status: Chronic Current Visit: No (6) HTN (hypertension) Status: Chronic Current Visit: No (7) Diabetes Status: Acute Current Visit: Yes Assessment and Plan for All Diagnoses:: Okay for discharge from cardiology standpoint on a combination of atenolol and verapamil. Follow-up in our office in 2-3 weeks.
--- NOTE | 2018-04-24 08:20 | Progress Note ---
Internal Medicine - PN: Subj *Date: 04/24/18 *Time: 08:17 Interval history: Patient states he is ready to go home today. He is feeling much better. He has not vomited in quite some time. He denies any palpitations. He slept well last night and ate well this morning. Exam Vital signs and Labs for Last 24 Hours: Temp Pulse Resp BP Pulse Ox 98.2 F 66 17 127/51 L 95 04/24/18 04:00 04/24/18 04:00 04/24/18 04:00 04/24/18 04:00 04/24/18 04:00 Laboratory Results - last 24 hr 04/23/18 06:25: Total Counted 100, Neutrophils % (Manual) 91 H, Band Neutrophils % 1.0, Lymphocytes % (Manual) 5 L, Monocytes % (Manual) 2, Eosinophils % (Manual) 1, Platelet Estimate Normal, RBC Morphology Normal 04/23/18 06:25: Amylase 27, Lipase 54 L 04/23/18 11:45: POC Glucose 152 H 04/23/18 15:35: Urine Color Yellow, Urine Appearance Clear, Urine pH 6.0, Ur Specific [place] 1.025, Urine Protein Negative, Urine Glucose (UA) Negative, Urine Ketones Negative, Urine Blood Negative, Urine Nitrate Negative, Urine Bilirubin Negative, Urine Urobilinogen 0.2, Ur Leukocyte Esterase Negative, Urine RBC None, Urine WBC 3-5, Ur Squamous Epith Cells Occasional, Urine Bacteria Trace 04/23/18 16:45: Stl Aeromonas (PCR) Not detected, Stl C. cayetanensis PCR Not detected, Stool Rotavirus (PCR) Not detected, Stl Adenov F 40/41 PCR Not detected, Stool Astrovirus (PCR) Not detected, Stool Campylobacter PCR Not detected, Stl C.difficile Tox PCR Not detected, Stool Cryptosporidium PCR Not detected, Stl E.coli Shiga Tox PCR Not detected, Stool E coli O157 PCR Not detected, Stl Enterotoxigenic E PCR Not detected, Stool EPEC (PCR) Not detected, Stool EAEC (PCR) Not detected, Stl E. histolytica PCR Not detected, Stool Giardia Lamblia PCR Not detected, Stool Salmonella PCR Not detected, Stool Sapovirus (PCR) Not detected, Stl P. shigelloides PCR Not detected, Stl Shigella/EIEC PCR Not detected, St Y.enterocolitica PCR Not detected, Stool Vibrio (PCR) Not detected, Stl Vibrio cholerae PCR Not detected, Stl Norovirus GI/GII PCR Detected A 04/23/18 16:56: POC Glucose 150 H 04/23/18 20:58: POC Glucose 153 H 04/24/18 05:23: POC Glucose 143 H 04/24/18 06:45: WBC 6.7 D, RBC 4.91, Hgb 14.8, Hct 43.9, MCV 89.4, MCH 30.2, MCHC 33.7, RDW 13.1, Plt Count 226, MPV 8.3, Neut % (Auto) 70.4, Lymph % (Auto) 20.0, Hanson % (Auto) 7.3, Eos % (Auto) 1.8, Baso % (Auto) 0.4, Neut # (Auto) 4.7, Lymph # (Auto) 1.3, Hanson # (Auto) 0.5, Eos # (Auto) 0.1, Baso # (Auto) 0.0 04/24/18 06:45: Sodium 139, Potassium 3.4 L, Chloride 102, Carbon Dioxide 24, Anion Gap 16.4 H, BUN 14 D, Creatinine 0.81 D, Estimated Creat Clear 103, Estimated GFR 94, Est GFR ( Amer) 114 D, Glucose 170 H, Calcium 8.1 L I & O for Last 24 hours: Intake & Output 04/21/18 04/22/18 04/23/18 04/24/18 11:59 11:59 11:59 11:59 Intake Total 2476 / 2476 1680 / 1680 Output Total 300 / 300 Balance 2176 / 2176 1680 / 1680 Weight 229 lb 7 oz Radiology Reports for the Last 24 Hours: Abdominal CT 1. Liquid stool with moderate air-fluid levels throughout the right and transverse colon. liquid stool extending to the descending colon.- Findings likely reflect diarrhea or impending diarrhea... & Most Likely reflection of enteritis. Small bowel normal caliber with only small air-fluid levels 2.. 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 Unchanged since prior study. Small bowel extends into this ventral hernia area appears normal with no restriction,. No inflammation. 3. Additional observations.:Stranding about right kidney more so the left most likely reflecting chronic changes. However may benefit from urinalysis to exclude any associated inflammatory changes right kidney or UTI.. No hydronephrosis. Only tiny punctate calculi kidneys bilateral-barely Appreciable ... Prominent coronary calcification - Constitutional no acute distress - *Routine Respiratory Exam Present: CTA bilaterally - *Routine Cardiovascular Exam Present: RRR (with less frequent ectopics) - *Routine Abdominal Exam Present: soft, normoactive bowel sounds. Absent: tenderness - *Routine Extremities Exam Absent: cyanosis, clubbing, edema Assessment and Plan (1) Sinus arrhythmia Current visit: No Status: Acute Category: Medical Code(s): I49.8 - Other specified cardiac arrhythmias (2) Palpitations Current visit: Yes Status: Acute Category: Medical Code(s): R00.2 - Palpitations (3) Vomiting Current visit: Yes Status: Acute Qualifiers: Vomiting type: unspecified Vomiting Intractability: non-intractable Nausea presence: with nausea Qualified Code(s): R11.2 - Nausea with vomiting, unspecified Category: Medical Code(s): R11.10 - Vomiting, unspecified (4) CAD (coronary artery disease) Current visit: No Status: Chronic Category: Medical Code(s): I25.10 - Atherosclerotic heart disease of [place] coronary artery without angina pectoris (5) HLD (hyperlipidemia) Current visit: No Status: Chronic Category: Medical Code(s): E78.5 - Hyperlipidemia, unspecified (6) HTN (hypertension) Current visit: No Status: Chronic Category: Medical Code(s): I10 - Essential (primary) hypertension (7) Diabetes Current visit: Yes Status: Acute Category: Medical Code(s): E11.9 - Type 2 diabetes mellitus without complications (8) Norovirus Current visit: Yes Status: Acute Category: Medical Code(s): A08.11 - Acute gastroenteropathy due to [place] agent - Assessment and plan all Dx Assessment and Plan for all problems:: Abdominal CT was reviewed and reflected enteritis. Diarrhea panel is positive for Norovirus. Patient's white count has improved. His potassium is slightly low today. He is feeling much better and cardiology feels he is stable to be discharged home. Will discuss disposition with Dr. Ta.
--- NOTE | 2018-04-27 22:05 | Discharge Summary ---
General - General Admission date:: 04/22/18 Discharge date: 04/24/18 HPI HPI: Mr. Oneill is a 68-year-old male who has had palpitations for years and used to be seen by Dr. Hernandez. Dr. Hernandez placed him on atenolol and he has not had problems with palpitations and flutters up until 3 weeks ago. He states he has had constant flutters for 3 weeks and this causes him to get nauseated. He presented to the emergency room today for evaluation and did vomit 3 times while in the ER. He states his acid reflux has been worse over the past 3 weeks as well. It was felt he would need to be admitted and monitored overnight with a cardiology consult. He has seen Dr. See in the past and had a heart cath. No stents were placed at that time. Hospital Course Hospital Course: The patient's chest x-ray showed nothing acute. He was placed on telemetry and cardiology was consulted. He was dehydrated and showed premature atrial contractions on the monitor. IV fluids were ordered. Atenolol was ordered twice daily. Cardiology ordered an echocardiogram and felt with normal troponins and a normal heart cath previously, no further evaluation was needed. They did start him on verapamil at 120 mg daily in addition to his atenolol. The patient began vomiting and his white blood cell count was elevated. He was started on metronidazole as well as metoclopramide and a CT of the abdomen was ordered. Patient's vomiting did improve. He had a diarrhea panel that was positive for norovirus. His palpitations improved on the combination of verapamil and atenolol. He was able to tolerate a diet. His CT did show enteritis. His white blood cell count improved but his potassium was slightly low. He was given a dose of potassium. He was adamant about discharge and threatened to leave AMA. Dr. Ta discussed this with him. Pantoprazole was added. The patient's symptoms improved and he was stable to be discharged home on atenolol, verapamil, metoclopramide, and metronidazole. He will follow-up in the office of [facility] as well as with cardiology Objective Vital signs: Temp Pulse Resp BP Pulse Ox 99.2 F 60 18 151/81 H 94 L 04/24/18 12:00 04/24/18 12:00 04/24/18 12:00 04/24/18 12:00 04/24/18 12:00 Narrative: - Constitutional no acute distress - *Routine HEENT Exam Head: Present: normocephalic Eye: Present: EOMI, PERRL ENT: Present: mucous membranes moist - *Routine Neck Exam Present: supple. Absent: lymphadenopathy - *Routine Respiratory Exam Present: CTA bilaterally - *Routine Cardiovascular Exam Present: RRR (with frequent ectopics) - *Routine Abdominal Exam Present: soft, normoactive bowel sounds. Absent: tenderness - *Routine Extremities Exam Absent: cyanosis, clubbing, edema - *Routine Skin Exam Present: warm. Absent: rash - *Routine Neurological Exam Present: alert, oriented X3 Results Labs on day of discharge: Preliminary micro results at discharge 04/23/18 10:43 Blood Culture - Preliminary Blood NO GROWTH AFTER 48 HOURS 04/23/18 10:43 Blood Culture - Preliminary Blood NO GROWTH AFTER 48 HOURS DS: Diagnosis - Discharge Diagnosis (1) Sinus arrhythmia Status: Acute (2) Palpitations Status: Acute (3) Vomiting Status: Acute (4) CAD (coronary artery disease) Status: Chronic (5) HLD (hyperlipidemia) Status: Chronic (6) HTN (hypertension) Status: Chronic (7) Diabetes Status: Acute (8) Norovirus Status: Acute Discharge Plan - Patient Discharge Instructions ACTIVITY: Limited activity DIET: advance to your usual diet - Follow up Plan Follow up with: Blake Ta MD [Primary Care Provider] - 04/29/18 Disposition: Home, Self-Intermediate Medications: Home Medications Medication Instructions Recorded Confirmed Type aspirin 81 mg tablet,delayed 325 mg PO DAILY 05/02/17 04/23/18 History release glipizide 5 mg tablet 5 mg PO BID 05/02/17 04/23/18 History omeprazole 20 mg capsule,delayed 20 mg PO BID 05/02/17 04/22/18 History release Insulin Aspart [Novolog] 50 unit SQ BID 02/26/18 04/22/18 History Metformin HCl [Fortamet] 1,000 mg PO DAILY 02/26/18 04/22/18 History Atorvastatin Calcium [Atorvastatin 80 mg PO DAILY 04/23/18 04/23/18 History 80mg Tab] Losartan/Hydrochlorothiazide 1 each PO DAILY 04/23/18 04/23/18 History [Losartan-Hctz 50-12.5 mg Tab] Atenolol [Tenormin 25mg tab] 25 mg PO BID #60 tablet 04/24/18 Rx Metoclopramide HCl [Reglan 5mg 2.5 mg PO TID #60 tablet 04/24/18 Rx Tablet] Verapamil HCl [Calan SR 120mg 120 mg PO DAILY #30 tablet.er 04/24/18 Rx tablet] metroNIDAZOLE [metroNIDAZOLE 500mg 500 mg PO TID #14 tablet 04/24/18 Rx Tablet] Prescriptions/Medication Reconciliation: New Atenolol [Tenormin 25mg tab] 25 mg PO BID #60 tablet Metoclopramide HCl [Reglan 5mg Tablet] 2.5 mg PO TID #60 tablet metroNIDAZOLE [metroNIDAZOLE 500mg Tablet] 500 mg PO TID #14 tablet Verapamil HCl [Calan SR 120mg tablet] 120 mg PO DAILY #30 tablet.er Continue omeprazole 20 mg capsule,delayed release 20 mg PO BID aspirin 81 mg tablet,delayed release 325 mg PO DAILY glipizide 5 mg tablet 5 mg PO BID Metformin HCl [Fortamet] 1,000 mg PO DAILY Atorvastatin Calcium [Atorvastatin 80mg Tab] 80 mg PO DAILY Losartan/Hydrochlorothiazide [Losartan-Hctz 50-12.5 mg Tab] 1 each PO DAILY Insulin Aspart [Novolog] 50 unit SQ BID Discontinued atenolol 25 mg tablet 25 mg PO DAILY tab
== END 2018-04-24 14:13 | disposition home or self-care (01) ==
LOC: 2ND 13:19 → ER 13:19 → 2ND 17:11
PROVIDERS: ADMIT Family Medicine; ATTEND Family Medicine
CPT/HCPCS: 36415; 71020; 71046; 74150; 80048; 81001; 82150; 82962; 83036; 83690; 83735; 84484; 85007; 85025; 87040; 87507; 93005; 93306; 96365; 99284; G0378; J2405; S0030

== ENCOUNTER → 2018-10-01 06:45 | Outpatient (CLI) | payer MEDICARE, OTHER, SELFPAY ==
--- NOTE | 2018-10-01 06:47 | NM_ITS ---
CARDIOLITE SPECT MYOCARDIAL PERFUSION LEXISCAN, REST AND STRESS: History: Hypertension, diabetes, hyperlipidemia, family history and fatigue Procedure: Patient received a 0.4 mg of Lexiscan, resting heart rate was 58 beats prominent resting blood pressure 135/81, with Lexiscan maximum heart rate achieved was 76 bpm which is less than 85% of the maximum] heart rate and a blood pressure was 142/75. With Lexiscan patient complained of shortness of breath. Electrocardiogram: Resting electrocardiogram showed sinus bradycardia nonspecific ST-T changes, with Lexiscan there is less than 1.5 ST segment depression noted from the baseline EKG. The EKG portion of the Lexiscan Myoview is nondiagnostic. Cardiac stress and resting SPECT images: Cardiac stress and resting SPECT images were obtained using technetium 99 Myoview 30.1 mCi stress and 10.9 mCi at rest. Gated SPECT further analysis of segmental wall motion and calculation of the ejection fraction also done. Cardiac stress and the rest images show uniform myocardial activity without segmental perfusion abnormality, computer derived ejection fraction is percent with no regional wall motion abnormality, right ventricle is normal size and contractility. Conclusion: 1. The EKG portion of the Lexiscan Myoview is nondiagnostic. 2. No scintigraphic evidence of reversible ischemia seen, computer derived ejection fraction is over 65% with no regional wall motion abnormality, right ventricle is normal size and contractility. 3. Normal Lexiscan Myoview study.
--- NOTE | 2018-10-01 06:47 | CA_ITS ---
PROCEDURE: 2-D M-mode and color Doppler study INDICATIONS FOR THE TEST: Chest pain COPD Heart Murmur Tobacco Smoking PalpitationsX Fatigue Syncope Edema HypertensionXDiabetes MellitusX Rheumatic Fever SOB SHETH ObesityXHyperlipidemiaX Family History HD Additional History CAD TDS PATIENT INFORMATION HEIGHT: 67 WEIGHT:235 GENDER: Male B/P:146/90 2-D/M-MODE INTERPRETATION: 2-D MEASUREMENTS OBSERVED VALUES IN CMS Right Ventricular Dimension (RVDd) 1.7 Interventricular Septum (Thickness)(IVsd) 1.3 Left Ventricular Internal Dimensions(LVIDd) 4.8 Left Ventricular Posterior Wall (Thickness)(LVPWd) 1.2 Aortic Root 3.6 Aortic Cusp Separation 1.9 Left Atrial Dimensions (LAD) 3.7 2D 1. Left atrium is mildly enlarged, left ventricle is normal size, mild concentric left ventricular hypertrophy, visually estimated ejection fraction 55% with no regional wall motion abnormality. 2. The right atrium and right ventricle are normal size and contractility. 3. The aortic valve is minimally thickened and fibrosed. 4. The mitral and tricuspid valvular grossly normal. 5. The pulmonic valve is poorly visualized. 6. No significant pericardial effusion noted. DOPPLER INTERROGATION: Doppler interrogation of the aortic, mitral and tricuspid valvular presence of mild mitral and tricuspid regurgitation, tricuspid regurgitation jet velocity is inadequate for calculation of the right ventricular systolic pressure, Doppler evidence of impaired relaxation seen, there is no tissue Doppler performed. CONCLUSION: 1. Mildly enlarged left atrium, normal left ventricular size, mild concentric left ventricular hypertrophy, visually estimated ejection fraction 55% with no regional wall motion abnormality, Doppler evidence of impaired LV relaxation seen. There is no tissue Doppler performed 2. Mild mitral and tricuspid regurgitation 3. No significant pericardial effusion noted.
--- NOTE | 2018-10-01 11:24 | HMH.ITSHM ---
Current Home Medications as stated by this patient Jarred Oneill or compliance representative. [] asa omeprazola rosuvatatin atenolol lisinopril glipizide metformin
== END ==
PROVIDERS: PCP Family Medicine; Visit Provider Urology
DX: E66.9 Obesity, unspecified (principal); E78.5 Hyperlipidemia, unspecified; I10 Essential (primary) hypertension; I25.10 Atherosclerotic heart disease of native coronary artery without angina pectoris; R00.2 Palpitations; R53.83 Other fatigue; R61 Generalized hyperhidrosis
CPT/HCPCS: 78452; 93017; 93306; A9502; J2785

== ENCOUNTER → 2019-02-12 11:25 | Outpatient (CLI) | payer MEDICARE, OTHER, SELFPAY ==
[2019-02-12 11:59] LABS: Basophils # 0.1 K/mm3 (0-0.2); Basophils % 0.7 % (0.1-2.0); Eosinophils # 0.2 K/mm3 (0.0-0.4); Eosinophils % 1.8 % (0.1-12.0); Hematocrit 45.8 % (42.0-52.0); Hemoglobin 15.4 g/dL (14.1-18.0); Lymphocytes # 2.2 K/mm3 (0.7-4.5); Lymphocytes % 22.8 % (10-50); Mean Corpuscular HGB Conc 33.7 g/dL (31.8-35.4); Mean Corpuscular Hemoglobin 31.1 pg (27.0-31.2); Mean Corpuscular Volume 92.3 fl (80-94); Mean Platelet Volume 9.1 fl (7.4-10.4); Monocytes # 0.5 K/mm3 (0.1-1.0); Neutrophils # 6.7 K/mm3 (1.8-7.8); Neutrophils % 69.8 % (37.0-80.0); Platelet Count 267 K/mm3 (142-424); Red Blood Count 4.97 M/mm3 (4.60-6.20); Red Cell Distribution Width 13.2 % (11.5-17.5); White Blood Count 9.6 K/mm3 (4.8-10.8)
[2019-02-12 12:57] LABS: Alanine Aminotransferase 31 U/L (12-78); Albumin Level 3.9 gm/dL (3.4-5.0); Alkaline Phosphatase 78 U/L (46-116); Anion Gap 13.2 mEq/L (5-15); Aspartate Amino Transferase 17 U/L (15-37); Bilirubin,Direct 0.1 mg/dL (0.0-0.2); Bilirubin,Indirect 0.4 mg/dL (0.0-0.9); Bilirubin,Total 0.5 mg/dL (0.2-1.0); Blood Urea Nitrogen 14 mg/dL (7-18); Calcium 9.4 mg/dL (8.5-10.1); Carbon Dioxide 29 mmol/L (21.0-32.0); Chloride 103 mmol/L (98-107); Chol/HDL Ratio 4.7 (1-3.5); Cholesterol 178 mg/dL (140-200); Creatinine,Serum 0.87 mg/dL (0.70-1.30); Estimated Glomerular Filt Rate 87 ml/min (>60); GFR (African American) 105 ML/MIN (>60); Glucose 120 mg/dL (74-106); HDL Cholesterol 38 mg/dL (27-67); LDL Cholesterol 113 mg/dL (0-130); Magnesium 1.7 mg/dL (1.4-2.2); Potassium 4.2 mmoL/L (3.5-5.1); Sodium 141 mmol/L (136-145); Total Protein,Serum 6.9 gm/dL (6.4-8.2); Triglycerides 136 mg/dL (30-200); VLDL Cholesterol 27 mg/dL (0-40)
== END ==
PROVIDERS: Visit Provider Physician Assistant
DX: E11.69 Type 2 diabetes mellitus with other specified complication (principal); E66.9 Obesity, unspecified; E78.49 Other hyperlipidemia; I10 Essential (primary) hypertension; I25.10 Atherosclerotic heart disease of native coronary artery without angina pectoris; R00.2 Palpitations; R06.09 Other forms of dyspnea
CPT/HCPCS: 36415; 80048; 80061; 80076; 83735; 85025

== ENCOUNTER → 2020-08-15 09:10 | Outpatient (CLI) | payer MEDICARE, OTHER, SELFPAY ==
[2020-08-15 09:52] LABS: Bilirubin,Unconjugated 0.7 mg/dL (0.0-1.1)
[2020-08-15 09:53] LABS: Alanine Aminotransferase 33 U/L (12-78); Albumin Level 4.4 g/dl (3.5-5.0); Alkaline Phosphatase 82 U/L (38-126); Aspartate Amino Transferase 30 U/L (17-59); Bilirubin,Indirect 0.6 mg/dL (0.0-0.9); Bilirubin,Total 0.6 mg/dl (0.2-1.3); Chol/HDL Ratio 3.4 (1-3.5); Cholesterol 114 mg/dl (140-200); HDL Cholesterol 34 mg/dl (40-60); Total Protein,Serum 6.7 g/dl (6.3-8.2); Triglycerides 85 mg/dl (30-150); VLDL Cholesterol 17 mg/dL (0-40)
[2020-08-15 10:04] LABS: Direct LDL Cholesterol 63.76 mg/dL (100-129)
== END ==
PROVIDERS: Visit Provider Urology
DX: E66.9 Obesity, unspecified (principal); E78.5 Hyperlipidemia, unspecified; I10 Essential (primary) hypertension; R06.09 Other forms of dyspnea; R29.898 Other symptoms and signs involving the musculoskeletal system; I25.10 Atherosclerotic heart disease of native coronary artery without angina pectoris
CPT/HCPCS: 36415; 80061; 80076

== ENCOUNTER → 2020-08-24 07:10 | Outpatient (CLI) | payer MEDICARE, OTHER, SELFPAY ==
--- NOTE | 2020-08-24 07:13 | CA_ITS ---
APPROVED REPORT EXAM: Comprehensive 2D, Doppler, and color-flow Echocardiogram Director Process: Keerthi Cheatham RVT Ht: 5 ft 8 in Wt: 238lbs BSA: 2.20 BP: 147/87 mmHg Indications: SOA,CAD,CP,EX SMOKER,DM,HTN,HLD TDS-PT BODY HABITUS 2D Dimensions LVOT 1.98 cm (M/F) 1.5-2.5 LA Volume 43.40 mL LA Volume Index 19.72 mL/m2 (M/F) 16-34 M-Mode Dimensions RVDd 2.94 cm (0.9-2.6) LA Diam 4.52 cm (1.9-4.0) LVDd 5.07 cm (3.5-5.7) Ao Diam 2.95 cm (2.0-3.7) LVDs 3.18 cm (3.5-5.7) IVSd 1.01 cm (0.6-1.1) PWd 0.84 cm (0.6-1.1) EF (Teich) 67.00% FS 37.30% EDV (Teich) 122.10 mL ESV (Teich) 40.30 mL LV Diastology E Decel Time 227.00 (160-240 msec) E/A Ratio 1.1 MED E' 8.60 (< 7 cm/sec) E'/MED E' Ratio 9.99 (>14) LAT E' 10.00 (<10 cm/sec) E/LAT E' Ratio 8.59 (>14) Mitral Valve MV E Max Martinez. 86.00 (40-130 cm/s) MV A Velocity 77.00 (40-130 cm/s) E/A Ratio 1.12 MV Decel. Time 227.00 (160-240 ms) MV PHT 66.00 ms Pulmonary Valve PV Peak Velocity 92.00 (50-150 cm/s) Tricuspid Valve TR P. Velocity 226.00 cm/s RAP Estimate 10.00 mmHg RVSP 30.40 mmHg Left Ventricle Left atrium is mildly enlarged, left ventricle is normal size, mild concentric left ventricular hypertrophy, visually estimated ejection fraction 55% with no regional wall motion abnormality, grade 1 diastolic dysfunction seen without tissue Doppler evidence of raise left atrial pressure. Right Ventricle Right atrium and right ventricle are mildly enlarged with normal contractility. Aortic Valve Aortic valve is thickened and calcified without Doppler evidence of aortic stenosis or aortic insufficiency. Mitral Valve Mitral valve is minimally thickened, there is mild mitral regurgitation. Tricuspid Valve Tricuspid grossly normal, there is trace tricuspid regurgitation, tricuspid regurgitation jet velocity is inadequate for calculation of the right ventricular systolic pressure. Pulmonic Valve Pulmonic valve is poorly visualized. Great Vessels Aortic root is normal size. Inferior vena cava is mildly dilated without significant inspiratory collapse. Pericardium No significant pericardial effusion noted. Conclusion 1. Biatrial enlargement, normal left ventricular size, mild concentric left ventricular hypertrophy, visually estimated ejection fraction 55% with no regional wall motion abnormality, diastolic parameters are inconclusive. 2. Mildly enlarged right ventricle with normal contractility. 3. Thickened and calcified aortic valve without aortic stenosis or aortic insufficiency. 4. Mild mitral and trace tricuspid regurgitation, tricuspid rotation jet velocity is inadequate for calculation of the right ventricular systolic pressure. 5. Inferior vena cava is mildly dilated without significant inspiratory collapse. Electronically signed by : Nakul Reddy, 08/24/2020 15:37:02
== END ==
PROVIDERS: PCP Family Medicine; Visit Provider Urology
DX: E66.9 Obesity, unspecified (principal); E78.5 Hyperlipidemia, unspecified; I10 Essential (primary) hypertension; I25.10 Atherosclerotic heart disease of native coronary artery without angina pectoris; R06.09 Other forms of dyspnea; R29.898 Other symptoms and signs involving the musculoskeletal system
CPT/HCPCS: 93306

== ENCOUNTER 2020-08-24 07:54 | Emergency (ER) | payer MEDICARE, OTHER, SELFPAY ==
[2020-08-24 07:55] VITALS: BP 163/78; PULSE 68; RESP 16; TEMP 36.9; O2SAT 98; BMI 37.3
--- NOTE | 2020-08-24 08:13 | HMH.EDEYEP ---
ED Disposition Clinical Impression: Swelling of right eyelid Disposition: Home, Self-Care Condition on Discharge: Good Additional Instructions: Return to emergency room should you have worsening pain or swelling in the eye within the next few days otherwise follow-up with optometry within the next 2 to 3 days Prescriptions: cephALEXin [Keflex 750mg Cap] 750 mg PO Q12H #14 cap Transmission Status: Pending to [id number] Referrals: Blake Ta MD [Primary Care Provider] - - Critical Care Critical Care Time: No Attestation: On 08/24/20, the high probability of a clinically significant, sudden or life threatening deterioration of the following system(s) required my full and direct attention, intervention and personal management. The time I documented below is in addition to time spent performing reported procedures but includes the following listed in this critical care notation. Medical Decision Making - Medical Records Medical records reviewed: Yes: I reviewed the patient's medical records. - [place] Inquiry Pt receiving controlled substance: No Vital Signs: 08/24/20 07:55 Temperature 98.5 F Temperature Source Oral Pulse Rate [Right] 68 Respiratory Rate 16 Blood Pressure [Right Arm] 163/78 H Blood Pressure Mean [Right Arm] 106 Blood Pressure Source [Right Arm] Automatic Cuff Blood Pressure Position [Right Arm] Sitting 02 Sat by Pulse Oximetry 98 Oxygen Delivery Method Room Air Medical Decision Narrative: 70-year-old male presents with right eyelid swelling. He is in no acute distress nontoxic-appearing. I have no concern for open globe rupture or corneal abrasion or other eye emergency as he has no pain in his eye and has no visual changes or blurry vision. The eyelid does have mild swelling but he is able to see out of his eye. Recommended warm compresses and plan to cover with antibiotics and referred to optometry within the next 24 hours should he not recover Eye Problem HPI - General Chief complaint: Eye Problems Stated complaint: rt eye swelling, redness Time Seen by Provider: 08/24/20 08:13 Mode of Arrival: Ambulatory Limitations: No Limitations Description of Symptoms (Recalled from ER Triage Doc. by RN): pt c/o eyelid being red and swollen for the past week. Denies any problems with vision - History of Present Illness HPI Narrative: Presents with swelling of the right eyelid. He says that the swelling began after he was working with metal and a small piece of metal went up and hit his eye. It has been going on for several days. He denies any pain to the eyelid or to the eye and he denies any change in vision or any visual concerns at all. He has full movement of his eye. No fever no chills. No nausea vomiting no headaches. Onset description: sudden Duration: constant - Related Data Home Medications Medication Instructions Recorded Confirmed glipizide 5 mg tablet 5 mg PO BID 05/02/17 02/12/19 omeprazole 20 mg capsule,delayed 20 mg PO BID 05/02/17 02/12/19 release Insulin Aspart [Novolog] 50 unit SQ BID 02/26/18 02/12/19 Atorvastatin Calcium [Lipitor 80mg 80 mg PO DAILY 04/23/18 02/12/19 Tab] aspirin 81 mg tablet,delayed 81 mg PO DAILY tab 08/15/20 release atenolol 25 mg tablet 50 mg PO DAILY tab 08/15/20 lisinopril 20 1 tab PO DAILY 08/15/20 08/15/20 mg-hydrochlorothiazide 25 mg tablet metformin 500 mg tablet,extended 500 mg PO BID tab 08/15/20 release 24hr tamsulosin 0.4 mg capsule 0.4 mg PO DAILY 08/15/20 08/15/20 Previous Rx's Medication Instructions Recorded cephALEXin [Keflex 750mg Cap] 750 mg PO Q12H #14 cap 08/24/20 Allergies Allergy/AdvReac Type Severity Reaction Status Date / Time No Known Allergies Allergy Verified 08/15/20 08:33 [facility] History - Hepatitis A Screen Drug use history?: No High risk sexual behaviors?: No History of sexually transmitted infection?: No 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
[2020-08-24 08:28] VITALS: BP 163/78; PULSE 71; RESP 18; O2SAT 96
[2020-08-24 08:32] VITALS: BP 132/71; PULSE 67; RESP 20; TEMP 36.9; O2SAT 99
== END 2020-08-24 08:30 | disposition home or self-care (01) ==
PROVIDERS: Emergency Provider Emergency Medicine; PCP Family Medicine
DX: H02.841 Edema of right upper eyelid (principal); E11.9 Type 2 diabetes mellitus without complications; I25.10 Atherosclerotic heart disease of native coronary artery without angina pectoris; E78.5 Hyperlipidemia, unspecified; K21.9 Gastro-esophageal reflux disease without esophagitis
CPT/HCPCS: 93306; 99281

== ENCOUNTER 2021-01-09 17:40 | Emergency (ER) | payer MEDICARE, OTHER, SELFPAY ==
[2021-01-09 17:41] VITALS: BP 163/90; PULSE 77; RESP 18; TEMP 36.8; O2SAT 95; BMI 36.0
--- NOTE | 2021-01-09 18:11 | XR_ITS ---
PROCEDURE INFORMATION: Exam: XR Chest Exam date and time: 01/09/2021 6:11 PM Age: 70 years old Clinical indication: Other: Patient became dizzy today after lunch while working on car. TECHNIQUE: Imaging protocol: XR of the chest. Views: 1 view. COMPARISON: CR CXR2V XR chest 2V 04/22/2018 1:45 PM FINDINGS: Lungs: Linear atelectasis or scarring in the left lung base. Pleural spaces: Unremarkable. No pleural effusion. No pneumothorax. Heart/Mediastinum: Unremarkable. No cardiomegaly. Vasculature: There is mild tortuosity of the thoracic aorta. Bones/joints: Partially imaged right shoulder replacement. IMPRESSION: No evidence of acute pulmonary process.
--- NOTE | 2021-01-09 18:11 | ECG_ITS ---
APPROVED REPORT Exam: Resting ECG HR:66 bpm ECG Measurements Heart Rate 66 AXES CA 172 P 41 QRSd 92 QRS -4 QT 420 T 63 QTc 440 Conclusion Normal sinus rhythm Nonspecific T wave abnormality Abnormal ECG Electronically signed by : Aman Boo MD 01/10/2021 07:29:12
--- NOTE | 2021-01-09 18:11 | CT_ITS ---
PROCEDURE INFORMATION: Exam: CT Head Without Contrast Exam date and time: 01/09/2021 6:11 PM Age: 70 years old Clinical indication: Dizziness; Patient HX: Patient became dizzy today after lunch while working on car. TECHNIQUE: Imaging protocol: Computed tomography of the head without contrast. Radiation optimization: All CT scans at this facility use at least one of these dose optimization techniques: automated exposure control; mA and/or kV adjustment per patient size (includes targeted exams where dose is matched to clinical indication); or iterative reconstruction. COMPARISON: CT HEAD/BRAIN WO CON 02/15/2019 4:18 PM FINDINGS: Brain: Prominent sulci. Patchy hypodensity of the cerebral white matter which are nonspecific but likely secondary to microangiopathic changes. Cerebral ventricles: The ventricles are prominent secondary to diffuse volume loss/atrophy. Paranasal sinuses: Visualized sinuses are unremarkable. No fluid levels. Mastoid air cells: Visualized mastoid air cells are well aerated. Bones/joints: Unremarkable. No acute fracture. Soft tissues: Unremarkable. IMPRESSION: Chronic age related changes but no evidence of acute intracranial pathology.
--- NOTE | 2021-01-09 18:46 | PC.NURSE ---
PT GONE TO CT
[2021-01-09 18:47] LABS: Microscopic, Urine URINE MICROSCOPIC (MICROSCOPIC)
--- NOTE | 2021-01-09 18:48 | HMH.EDGENADL ---
ED Disposition Clinical Impression: Hypokalemia Disposition: Home, Self-Care Condition on Discharge: Good Referrals: Stan Cook MD [Primary Care Provider] - 01/10/21 (call for appt) Time of Disposition: 20:03 - Critical Care Critical Care Time: No Attestation: On 01/09/21, the high probability of a clinically significant, sudden or life threatening deterioration of the following system(s) required my full and direct attention, intervention and personal management. The time I documented below is in addition to time spent performing reported procedures but includes the following listed in this critical care notation. Medical Decision Making - Medical Records Medical records reviewed: Yes: I reviewed the patient's medical records. - Naman Inquiry Pt receiving controlled substance: No Vital Signs: 01/09/21 17:41 Temperature 98.3 F Temperature Source Oral Pulse Rate [Right Radial] 77 Respiratory Rate 18 Blood Pressure [Right Arm] 163/90 H Blood Pressure Mean [Right Arm] 114 Blood Pressure Source [Right Arm] Automatic Cuff Blood Pressure Position [Right Arm] Sitting 02 Sat by Pulse Oximetry 95 Oxygen Delivery Method Room Air - Lab Data Lab results reviewed: Yes: I reviewed the patient's lab results. Lab Results 01/09/21 18:05: Urine Color Yellow, Urine Appearance Clear, Urine pH 6.5, Ur Specific [place] 1.010, Urine Protein Negative, Urine Glucose (UA) Negative, Urine Ketones Negative, Urine Blood Negative, Urine Nitrate Negative, Urine Bilirubin Negative, Urine Urobilinogen 0.2, Ur Leukocyte Esterase Negative, Urine RBC None, Urine WBC None, Ur Squamous Epith Cells None, Urine Bacteria None 01/09/21 18:40: WBC 10.2, RBC 4.82, Hgb 14.8, Hct 43.6, MCV 90.5, MCH 30.8, MCHC 34.0, RDW 12.8, Plt Count 244, MPV 8.5, Neut % (Auto) 71.6, Lymph % (Auto) 21.5, [place] % (Auto) 5.1, Eos % (Auto) 1.4, Baso % (Auto) 0.5, Neut # (Auto) 7.3, Lymph # (Auto) 2.2, [place] # (Auto) 0.5, Eos # (Auto) 0.1, Baso # (Auto) 0.1 01/09/21 18:40: Sodium 140, Potassium 3.3 L, Chloride 102, Carbon Dioxide 28, Anion Gap 13.3, BUN 14, Creatinine 0.80, Estimated Creat Clear 100, Estimated GFR 95, Est GFR ( Amer) 115, Glucose 198 H, Calcium 9.4, Total Bilirubin 0.5, AST 27, ALT 21, Alkaline Phosphatase 92, Troponin I < 0.01, Total Protein 6.6, Albumin 4.0, Globulin 2.6, Albumin/Globulin Ratio 1.5 Result diagrams: 01/09/21 18:40 01/09/21 18:40 Orders (Tests/Meds): ED MEDICATIONS Discontinued Medications Generic Name Dose Route Start Last Admin Trade Name Freq PRN Reason Stop Dose Admin Potassium Chloride 40 meq 01/09/21 19:26 01/09/21 19:52 Potassium Chloride 20meq Tab PO 01/09/21 19:27 40 meq ONCE ONE Administration ORDERS Category Date Time Status Rapid PCR Covid and Flu A/B Stat Lab 01/09/21 18:12 Ordered Troponin I Q3H Lab 01/09/21 21:15 Ordered - ECG Data Tracing #1 I reviewed this ECG and interpreted as documented below: Normal sinus rhythm, 66 bpm, no ST elevation or depression, normal intervals, no ectopy. ECG initial impression date: 01/09/21 ECG initial impression time: 18:24 Medical Decision Narrative: 70yo M evaluated for dizziness. Differential diagnosis includes but not limited to: ACS/NC, TIA/stroke, hypoglycemia, electrolyte abnormality, urinary tract infection, viral etiology. Patient is in no acute distress on initial evaluation. I observed the patient walking through the emergency department without difficulty and demonstrated even an even gait. Patient sent for CT of the head, EKG reviewed as above. Blood work is pending at this time. CT shows shows no acute finding. Blood work is benign, along with normal urinalysis. Patient provided 40 mill equivalents of potassium p.o. and discharged home in stable condition. General Adult HPI - General Chief complaint: Recheck/Abnormal Lab/Rx Stated complaint: Dizzy Time Seen by Provider: 01/09/21 18:48 Mode of Arrival: A
[2021-01-09 18:58] LABS: Basophils # 0.1 K/mm3 (0-0.2); Basophils % 0.5 % (0.1-2.0); Chloride 102 mmol/L (98-107); Eosinophils # 0.1 K/mm3 (0.0-0.4); Eosinophils % 1.4 % (0.1-12.0); Hematocrit 43.6 % (42.0-52.0); Hemoglobin 14.8 g/dL (14.1-18.0); Lymphocytes # 2.2 K/mm3 (0.7-4.5); Lymphocytes % 21.5 % (10-50); Mean Corpuscular Hemoglobin 30.8 pg (27.0-31.2); Mean Corpuscular Volume 90.5 fl (80-94); Mean Platelet Volume 8.5 fl (7.4-10.4); Monocytes # 0.5 K/mm3 (0.1-1.0); Monocytes % 5.1 % (1.7-9.3); Neutrophils # 7.3 K/mm3 (1.8-7.8); Neutrophils % 71.6 % (37.0-80.0); Platelet Count 244 K/mm3 (142-424); Potassium 3.3 mmoL/L (3.5-5.1); Red Blood Count 4.82 M/mm3 (4.60-6.20); Red Cell Distribution Width 12.8 % (11.5-17.5); Sodium 140 mmol/L (136-145); White Blood Count 10.2 K/mm3 (4.8-10.8)
[2021-01-09 19:01] LABS: Alanine Aminotransferase 21 U/L (12-78); Albumin/Globulin Ratio 1.5 (1.1-1.8); Alkaline Phosphatase 92 U/L (38-126); Anion Gap 13.3 mEq/L (5-15); Aspartate Amino Transferase 27 U/L (17-59); Bilirubin,Total 0.5 mg/dl (0.2-1.3); Blood Urea Nitrogen 14 mg/dl (9-20); Calcium 9.4 mg/dl (8.4-10.2); Carbon Dioxide 28 mmol/L (22.0-30.0); Creatinine Clearance Estimated 100 mL/min (50-200); Estimated Glomerular Filt Rate 95 ml/min (>60); GFR (African American) 115 ML/MIN (>60); Globulin 2.6 g/dL (1.3-3.2); Glucose 198 mg/dl (74-100); Total Protein,Serum 6.6 g/dl (6.3-8.2)
[2021-01-09 19:02] LABS: Appearance,Urine CLEAR (Clear); Bilirubin,Urine Negative (Negative); Blood, Urine Negative (Negative); Color,Urine YELLOW (Yellow); Glucose,Urine (UA) Negative (Negative); Ketones,Urine Negative (Negative); Leukocyte Esterase,Urine Negative (Negative); Nitrate,Urine Negative (Negative); PH,Urine 6.5 (5.0-8.5); Protein,Urine Negative (Negative); Urobilinogen,Urine 0.2 EU/dl (0.2)
[2021-01-09 19:15] LABS: Troponin I < 0.01 ng/ml (0.00-0.034)
[2021-01-09 19:56] VITALS: BP 146/67; PULSE 66; O2SAT 95
[2021-01-09 20:00] VITALS: BP 134/65; PULSE 63; O2SAT 95
[2021-01-09 20:48] VITALS: BP 134/65; PULSE 78; RESP 18; TEMP 36.8; O2SAT 97
== END 2021-01-09 20:50 | disposition home or self-care (01) ==
PROVIDERS: Family Medicine; Emergency Provider Nurse Practitioner Family; PCP Family Medicine
DX: E11.65 Type 2 diabetes mellitus with hyperglycemia (principal); E87.6 Hypokalemia; I10 Essential (primary) hypertension; E78.5 Hyperlipidemia, unspecified; K21.9 Gastro-esophageal reflux disease without esophagitis; Z79.899 Other long term (current) drug therapy; Z79.4 Long term (current) use of insulin
CPT/HCPCS: 70450; 71045; 80053; 81001; 84484; 85025; 93005; 99284

== ENCOUNTER 2021-01-19 02:29 | Emergency (ER) | payer MEDICARE, OTHER, SELFPAY ==
--- NOTE | 2021-01-19 02:23 | ECG_ITS ---
APPROVED REPORT Exam: Resting ECG HR:61 bpm ECG Measurements Heart Rate 61 AXES CA 186 P 29 QRSd 86 QRS 4 QT 418 T 71 QTc 420 Conclusion Normal sinus rhythm Normal ECG Electronically signed by : Aman Boo MD 01/19/2021 17:35:01
[2021-01-19 02:30] VITALS: BP 131/74; PULSE 63; RESP 19; TEMP 36.6; O2SAT 95; BMI 36.0
[2021-01-19 02:53] VITALS: BMI 36.0
--- NOTE | 2021-01-19 03:09 | XR_ITS ---
PROCEDURE INFORMATION: Exam: XR Chest Exam date and time: 01/19/2021 3:09 AM Age: 70 years old Clinical indication: Pain; Left-sided; Additional info: Chest pain TECHNIQUE: Imaging protocol: XR of the chest. Views: 1 view. COMPARISON: CR XR CHEST PORTABLE 01/09/2021 6:45 PM FINDINGS: Lungs: Unremarkable. No consolidation. Pleural spaces: Unremarkable. No pleural effusion. No pneumothorax. Heart/Mediastinum: Unremarkable. No cardiomegaly. Bones/joints: Right shoulder arthroplasty is noted. IMPRESSION: No acute findings.
[2021-01-19 03:25] LABS: Anion Gap 14.5 mEq/L (5-15); Blood Urea Nitrogen 20 mg/dl (9-20); Calcium 9.1 mg/dl (8.4-10.2); Carbon Dioxide 26 mmol/L (22.0-30.0); Chloride 106 mmol/L (98-107); Creatinine Clearance Estimated 100 mL/min (50-200); Estimated Glomerular Filt Rate 95 ml/min (>60); GFR (African American) 115 ML/MIN (>60); Glucose 138 mg/dl (74-100); Magnesium 1.6 mg/dl (1.6-2.3); Potassium 3.5 mmoL/L (3.5-5.1); Sodium 143 mmol/L (136-145)
[2021-01-19 03:39] LABS: NT Pro Brain Natriuretic Pep. 201 pg/mL (0-125)
[2021-01-19 03:44] LABS: Procalcitonin 0.045 ng/mL (0.0-2.0)
--- NOTE | 2021-01-19 03:57 | HMH.EDCP ---
ED Disposition Clinical Impression: Chest pain Qualifiers: Chest pain type: precordial pain Qualified Code(s): R07.2 - Precordial pain Obesity Qualifiers: Obesity type: due to excess calories Obesity classification: adult class 2 (BMI 35 - 39.9) Serious obesity comorbidity presence: with serious comorbidity Body mass index: BMI 36.0-36.9 Qualified Code(s): E66.01 - Morbid (severe) obesity due to excess calories; Z68.36 - Body mass index [BMI] 36.0-36.9, adult Disposition: Home, Self-Care Condition on Discharge: Good Instructions: DI for Chest Pain Additional Instructions: keep appt with card Referrals: Stan Cook MD [Primary Care Provider] - - Critical Care Critical Care Time: No Attestation: On 01/19/21, the high probability of a clinically significant, sudden or life threatening deterioration of the following system(s) required my full and direct attention, intervention and personal management. The time I documented below is in addition to time spent performing reported procedures but includes the following listed in this critical care notation. Medical Decision Making - Medical Records Medical records reviewed: Yes: I reviewed the patient's medical records. - Naman Inquiry Pt receiving controlled substance: No Vital Signs: 01/19/21 02:30 Temperature 97.9 F Temperature Source Oral Pulse Rate [Right] 63 Respiratory Rate 19 Blood Pressure [Right Arm] 131/74 Blood Pressure Mean [Right Arm] 93 Blood Pressure Source [Right Arm] Automatic Cuff 02 Sat by Pulse Oximetry 95 Oxygen Delivery Method Room Air - Lab Data Lab results reviewed: Yes: I reviewed the patient's lab results. Lab Results 01/19/21 02:38: Sodium 143, Potassium 3.5, Chloride 106, Carbon Dioxide 26, Anion Gap 14.5, BUN 20, Creatinine 0.80, Estimated Creat Clear 100, Estimated GFR 95, Est GFR ( Amer) 115, Glucose 138 H, Calcium 9.1, Magnesium 1.6, Troponin I < 0.01, C-Reactive Protein 1.0, NT-Pro-B Natriuret Pep 201 H 01/19/21 02:38: Procalcitonin 0.045 Result diagrams: 01/19/21 02:38 Orders (Tests/Meds): ORDERS Category Date Time Status Complete Blood Count Auto Diff Stat Lab 01/19/21 02:38 Received Erythrocyte Sedimentation Rate Stat Lab 01/19/21 02:38 Received Troponin I Q3H Lab 01/19/21 06:15 Ordered Troponin I Q3H Lab 01/19/21 09:15 Ordered - Radiology Data #1 Image(s): Chest Image Reviewed: Yes I have reviewed radiologist's interpretation Preliminary Findings: Normal/NAD - ECG Data Tracing #1 Normal Sinus Rhythm: Yes Ischemic changes: non-specific ST-T wave changes Medical Decision Narrative: stable labs and exam and has pending card eval Chest Pain HPI - General Chief Complaint: Chest Pain Stated Complaint: Chest Pain Time Seen by Provider: 01/19/21 02:45 Mode of Arrival: Family Vehicle Source of Information: Patient, Medical Record Limitations: No Limitations Description of Symptoms (Recalled from ER Triage Doc. by RN): Pt c/o left chest wall pain that has been intermittent for a few days and now worsens with movement of left shoulder. Pt denies any sob, radiating pain, n/v/d, or dizziness. Pt states he has low potassium recently, they replaced with oral medication. Pt reports his pain is absent at this time, but he was just concerned since it worsened last night. - History of Present Illness HPI narrative: acute episodes of ant chest pain - resolved now - has pending appt with card complaint: chest pain indicative of cardiac Onset (ago): hour(s) Duration: now resolved Activity at onset: during rest Pain location: left chest Severity: moderate Quality: dull Pain radiation: none Risk Factors for CAD: Hypertension, Hypercholesterolemia, Family Hx of CAD, Diabetes Treatments prior to or on arrival for Cardiac Chest Pain: none - RONEL Score for Non-Stemi Age of Patient: 70-79 years old Heart Rate: 50-69 bpm Systolic Blood Pressure: 120-139 mmhg Serum C
[2021-01-19 04:15] LABS: Troponin I < 0.01 ng/ml (0.00-0.034)
[2021-01-19 04:37] LABS: Basophils # 0.1 K/mm3 (0-0.2); Basophils % 1.2 % (0.1-2.0); Eosinophils # 0.2 K/mm3 (0.0-0.4); Eosinophils % 1.7 % (0.1-12.0); Hemoglobin 14.7 g/dL (14.1-18.0); Lymphocytes # 2.3 K/mm3 (0.7-4.5); Lymphocytes % 25.3 % (10-50); Mean Corpuscular HGB Conc 33.4 g/dL (31.8-35.4); Mean Corpuscular Hemoglobin 30.9 pg (27.0-31.2); Mean Corpuscular Volume 92.5 fl (80-94); Mean Platelet Volume 10.8 fl (7.4-10.4); Monocytes # 0.6 K/mm3 (0.1-1.0); Monocytes % 6.3 % (1.7-9.3); Neutrophils % 65.6 % (37.0-80.0); Platelet Count 263 K/mm3 (142-424); Red Blood Count 4.76 M/mm3 (4.60-6.20); White Blood Count 9.1 K/mm3 (4.8-10.8)
[2021-01-19 04:44] VITALS: BP 144/83; PULSE 62; RESP 16; TEMP 36.8; O2SAT 95
[2021-01-19 05:01] LABS: Erythrocyte Sedimentation Rate 18 mm/hr (0-20)
== END 2021-01-19 04:58 | disposition home or self-care (01) ==
PROVIDERS: Emergency Provider Emergency Medicine; PCP Family Medicine
DX: R07.2 Precordial pain (principal); R06.02 Shortness of breath; E66.9 Obesity, unspecified; Z68.36 Body mass index [BMI] 36.0-36.9, adult; I25.10 Atherosclerotic heart disease of native coronary artery without angina pectoris; K21.9 Gastro-esophageal reflux disease without esophagitis; E11.9 Type 2 diabetes mellitus without complications; I10 Essential (primary) hypertension; E78.5 Hyperlipidemia, unspecified; Z79.899 Other long term (current) drug therapy
CPT/HCPCS: 71045; 80048; 83735; 83880; 84145; 84484; 85025; 85651; 86140; 93005; 99283

== ENCOUNTER → 2021-01-26 06:05 | Outpatient (CLI) | payer MEDICARE, OTHER, SELFPAY ==
--- NOTE | 2021-01-26 06:07 | CA_ITS ---
APPROVED REPORT Exam: Pharmacologic Technologist: Zehra Connor Stress Nurse: Ramana Lujan Ht: 5 ft 7 in Wt: 232 lbs BSA: 2.15 m2 HR: 54 bpm BP: 144/80 mmHg Medical History Medical History: HTN, Hyperlipidemia, Diabetes Medications: Omeprazole,,,,, Aspirin,,,,, Atenolol,,,,, Atorvastatin,,,,, Glipizide,,,,, Lisinopri/HCTZ,,,,, INSULIN ASPART U-100,,,,, Allergies: No known drug allergies Cardiac Risk Factors: HTN, Hyperlipidemia, Diabetes (insulin), FHX of CAD, Smoking Stress Test Details Test: LEXISCAN HR Resting HR: 56 bpm Max Heart Rate (APMHR): 149.752954 bpm Max HR Achieved: 73 bpm Target HR (85% APMHR): 126.316794 bpm % of APMHR: 48.99 Recovery HR: 68 bpm BP Resting BP: 144/80 mmHg Max BP: 147/79 mmHg Recovery BP: 103.0/76.0 mmHg ECG Resting ECG: Sinus Tai Clinical Exercise duration: 04:00 min Highest Stage Achieved: Exercise capacity: 1.0 METs Stress ECG Conclusion Lexiscan portion completed. Pt complained of shortness of breath during peak infusion resolved in recovery. No CP. OCC PAC. Less than 1.[address] repair. Images to follow. Test Summary REST 02:34 . . 56 . 144/ 80 . . Stage 1 . . . . . . . Myoview Injected Stage 1 01:00 . . 62 . . . . Stage 2 01:00 . . 72 . 133/ 72 . . Stage 3 01:00 . . 69 . 147/ 79 . . Stage 4 01:00 . . 68 . 137/ 76 . Stop exercise at 04:00 RECOVERY 01:00 . . 67 . . . . RECOVERY 02:00 . . 68 . 124/ 79 . . RECOVERY 03:00 . . 65 . 124/ 79 . . RECOVERY 04:00 . . 70 . 103/ 76 . . RECOVERY 04:11 . . 67 . 103/ 76 . . Electronically signed by : Nakul Reddy MD 01/26/2021 12:36:39
--- NOTE | 2021-01-26 06:07 | NM_ITS ---
APPROVED REPORT Exam: Nuclear Stress Test Indication: chest pain..palpitations..fatigue Patient Location: Outpatient Stress Tech: Zehra Connor NM Tech:Marsha Ritchie JAMILAHRuslan RT(R)(N) Ht: 5 ft 7 in Wt: 230 lbs HR: 54 bpm BP: 144/80 mmHg BSA: 2.15 m2 BMI: 36.0 History: chest pain..palpitations..fatigue Procedure: Patient received a 0.4 mg of intravenous Lexiscan, resting heart rate 54 bpm, resting blood pressure 144/80 mmHg, with Lexiscan maximum heart rate achived was 72 bpm which is Less than 85 % of the maximum predicted heart rate and blood pressure was 133/72 mmHg. With Lexiscan, patient denied any complaint of chest pain. Electrocardiogram Resting electrocardiogram showed sinus rhythm, with Lexiscan less than 1.[address] segment depression noted from the baseline EKG. The EKG portion of the Lexiscan Myoview is nondiagnostic. Cardiac Stress and Resting SPECT Images: Cardiac Stress and Resting SPECT images were obtained using technetium 99m Myoview 31.7 mCi stress and 10.67 mCi at rest. Gated SPECT for analysis of segmental wall motion and calculation of the ejection fraction also done. Prone images were also obtained. Cardiac stress and resting SPECT images show uniform myocardial activity without segmental perfusion abnormality, compared right ejection fraction is 60% with no regional wall motion abnormality, right ventricle is normal size and contractility. Conclusion: 1. The EKG portion of the Lexiscan Myoview is nondiagnostic. 2. No scintigraphic evidence of reversible ischemia seen, computer derived ejection fraction is 60% with no regional wall motion abnormality, right ventricle is normal size and contractility. 3. Normal Lexiscan Myoview study. Electronically signed by : Nakul Reddy MD 01/26/2021 12:39:25
== END ==
PROVIDERS: PCP Family Medicine; Visit Provider Urology
DX: I25.10 Atherosclerotic heart disease of native coronary artery without angina pectoris
CPT/HCPCS: 78452; 93017; A9502; J2785

== ENCOUNTER → 2021-08-03 08:03 | Outpatient (CLI) | payer MEDICARE, OTHER, SELFPAY ==
--- NOTE | 2021-08-03 08:05 | US_ITS ---
FINAL REPORT CLINICAL HISTORY: leg weakness, previous smoker, HTN, DM, hyperlipidemia, hx TIA, bilateral claudication. FINDINGS: ANKLE-BRACHIAL PRESSURE INDICES Pressure indices are as follows: RIGHT LOWER EXTREMITY: Ankle-brachial pressure index: 1.06 Comments: Normal LEFT LOWER EXTREMITY: Ankle-brachial pressure index: 1.15 Comments: Normal CONCLUSION: No evidence of significant obstructive peripheral vascular disease of the lower extremities Reviewed, Interpreted and Dictated by Guillermo Reece III, MD Transcribed by Tish Landaverde Authenticated by Guillermo Reece III, MD on 08/03/2021 10:37:54 AM [facility]
[2021-08-03 10:14] LABS: Alanine Aminotransferase 29 U/L (12-78); Albumin Level 4.4 g/dl (3.5-5.0); Alkaline Phosphatase 80 U/L (38-126); Aspartate Amino Transferase 28 U/L (17-59); Bilirubin,Direct 0.2 mg/dl (0.0-0.4); Bilirubin,Indirect 0.6 mg/dL (0.0-0.9); Bilirubin,Total 0.8 mg/dl (0.2-1.3); Bilirubin,Unconjugated 0.6 mg/dL (0.0-1.1); Chol/HDL Ratio 3.7 (1-3.5); Cholesterol 123 mg/dl (140-200); HDL Cholesterol 33 mg/dl (40-60); Total Protein,Serum 6.8 g/dl (6.3-8.2); Triglycerides 86 mg/dl (30-150); VLDL Cholesterol 17 mg/dL (0-40)
[2021-08-03 10:24] LABS: Direct LDL Cholesterol 65.55 mg/dL (100-129)
== END ==
PROVIDERS: PCP Family Medicine; Visit Provider Nurse Practitioner Family
DX: E78.49 Other hyperlipidemia (principal); I10 Essential (primary) hypertension; I25.10 Atherosclerotic heart disease of native coronary artery without angina pectoris; I73.9 Peripheral vascular disease, unspecified; R29.898 Other symptoms and signs involving the musculoskeletal system
CPT/HCPCS: 36415; 80061; 80076; 93923

== ENCOUNTER 2022-05-06 01:01 | Emergency (ER) | payer MEDICARE, OTHER, SELFPAY ==
[2022-05-06 01:02] VITALS: BP 121/79; PULSE 63; RESP 18; TEMP 36.6; O2SAT 95; BMI 36.0
--- NOTE | 2022-05-06 01:31 | XR_ITS ---
PROCEDURE INFORMATION: Exam: XR Chest Exam date and time: 05/06/2022 1:28 AM Age: 72 years old Clinical indication: Chest wall pain; Additional info: Left flank TECHNIQUE: Imaging protocol: Radiologic exam of the chest. Views: 2 views. COMPARISON: CR XR CHEST AP 01/19/2021 3:38 AM FINDINGS: Lungs: Unremarkable. No consolidation. Pleural spaces: Unremarkable. No pleural effusion. No pneumothorax. Heart/Mediastinum: Unremarkable. No cardiomegaly. Bones/joints: Degenerative changes are noted throughout the thoracic spine. Right shoulder prosthesis is in place. IMPRESSION: No acute disease
--- NOTE | 2022-05-06 01:37 | ECG_ITS ---
APPROVED REPORT Exam: Resting ECG HR:58 bpm ECG Measurements Heart Rate 58 AXES CA 120 P 9 QRSd 91 QRS 14 QT 418 T 60 QTc 416 Conclusion SINUS BRADYCARDIA WITH OCCASIONAL VENTRICULAR PREMATURE COMPLEXES BORDERLINE ECG UNCONFIRMED REPORT Electronically signed by : Aman Boo MD 05/06/2022 19:24:01
--- NOTE | 2022-05-06 01:51 | CT_ITS ---
PROCEDURE INFORMATION: Exam: CT Abdomen And Pelvis Without Contrast Exam date and time: 05/06/2022 2:06 AM Age: 72 years old Clinical indication: Abdominal pain; Flank; Left; Additional info: Llq colon TECHNIQUE: Imaging protocol: Computed tomography of the abdomen and pelvis without contrast. Radiation optimization: All CT scans at this facility use at least one of these dose optimization techniques: automated exposure control; mA and/or kV adjustment per patient size (includes targeted exams where dose is matched to clinical indication); or iterative reconstruction. COMPARISON: [facility] CT abdomen wo con 04/23/2018 10:53 AM FINDINGS: Coronary arteries: Coronary artery calcification and stents are noted. Liver: Normal. No mass. Gallbladder and bile ducts: The gallbladder is surgically absent. Pancreas: Normal. No ductal dilation. Spleen: Normal. No splenomegaly. Adrenal glands: Normal. No mass. Kidneys and ureters: There is stable moderate bilateral perinephric fatty stranding. No evidence of renal mass, urolithiasis or hydronephrosis. Stomach and bowel: Unremarkable. No obstruction. No mucosal thickening. Appendix: No evidence of appendicitis. Intraperitoneal space: Unremarkable. No free air. No significant fluid collection. Vasculature: Atherosclerotic calcification are noted throughout the abdominal aorta and its branches. No evidence of aortic aneurysm. Lymph nodes: Unremarkable. No enlarged lymph nodes. Urinary bladder: Unremarkable as visualized. Reproductive: Unremarkable as visualized. Bones/joints: Significant multilevel degenerative disc changes noted throughout the lower thoracic and lumbar spine. There is facet arthropathy of the lumbosacral junction with grade 1 anterolisthesis of L5. Soft tissues: There is a small ventral hernia containing a loop of small bowel. No evidence of hernia incarceration. IMPRESSION: Stable chronic appearing changes as described. No acute abnormality evident in the abdomen or pelvis. Specifically, no evidence of urolithiasis or hydronephrosis.
[2022-05-06 01:53] LABS: Basophils # 0.1 K/mm3 (0-0.2); Basophils % 1.2 % (0.1-2.0); Eosinophils # 0.2 K/mm3 (0.0-0.4); Eosinophils % 2.5 % (0.1-12.0); Hematocrit 48.4 % (42.0-52.0); Hemoglobin 16.2 g/dL (14.1-18.0); Lymphocytes # 2.7 K/mm3 (0.7-4.5); Mean Corpuscular HGB Conc 33.4 g/dL (31.8-35.4); Mean Corpuscular Hemoglobin 30.7 pg (27.0-31.2); Mean Corpuscular Volume 91.7 fl (80-94); Mean Platelet Volume 9.2 fl (7.4-10.4); Monocytes # 0.5 K/mm3 (0.1-1.0); Monocytes % 5.1 % (1.7-9.3); Neutrophils % 63.2 % (37.0-80.0); Platelet Count 297 K/mm3 (142-424); Red Blood Count 5.27 M/mm3 (4.60-6.20); Red Cell Distribution Width 13.5 % (11.5-17.5); White Blood Count 9.5 K/mm3 (4.8-10.8)
[2022-05-06 02:17] LABS: Alanine Aminotransferase 29 U/L (12-78); Albumin Level 4.3 g/dl (3.5-5.0); Albumin/Globulin Ratio 1.7 (1.1-1.8); Alkaline Phosphatase 84 U/L (38-126); Anion Gap 11.6 mEq/L (5-15); Aspartate Amino Transferase 34 U/L (17-59); Bilirubin,Total 0.6 mg/dl (0.2-1.3); Blood Urea Nitrogen 18 mg/dl (9-20); Calcium 8.9 mg/dl (8.4-10.2); Carbon Dioxide 27 mmol/L (22.0-30.0); Chloride 105 mmol/L (98-107); Creatinine Clearance Estimated 97 mL/min (50-200); Estimated Glomerular Filt Rate 95 ml/min (>60); GFR (African American) 115 ML/MIN (>60); Globulin 2.6 g/dL (1.3-3.2); Glucose 121 mg/dl (74-100); Potassium 3.6 mmoL/L (3.5-5.1); Sodium 140 mmol/L (136-145); Total Protein,Serum 6.9 g/dl (6.3-8.2)
[2022-05-06 02:22] LABS: C-Reactive Protein 0.5 mg/L (0-4)
[2022-05-06 02:31] LABS: Erythrocyte Sedimentation Rate 10 mm/hr (0-20)
[2022-05-06 02:32] LABS: Troponin I 0.09 ng/ml (0.00-0.034)
[2022-05-06 02:37] LABS: Procalcitonin 0.044 ng/mL (0.0-2.0)
--- NOTE | 2022-05-06 02:42 | HMH.EDABDPAI ---
Discharge Plan Disposition Patient Disposition: Home, Self-Care Chief Complaint: Abdominal Pain Prescriptions Prescriptions: No Action glipizide 5 mg tablet 5 mg PO BID omeprazole 20 mg capsule,delayed release(DR/EC) 20 mg PO BID aspirin 81 mg tablet,delayed release (DR/EC) 81 mg PO DAILY lisinopril-hydrochlorothiazide 20-25 mg tablet 1 tab PO DAILY atorvastatin 80 mg tablet 80 mg PO DAILY Qty: 90 3RF atenolol 50 mg tablet 50 mg PO DAILY Qty: 90 3RF insulin aspart U-100 100 UNIT/ML solution 50 unit SQ BID Referrals Follow up/Referrals: Stan Cook MD [Primary Care Provider] - See instructions Clinical Impressions Clinical Impression: Chest pain Instructions Patient Instructions: DI for Atypical Chest Pain Discharge ED Provider: Jersey Lira Abdominal Pain HPI General Chief Complaint: Abdominal Pain Stated Complaint: pain under shoulder blade; high bp Time Seen by Provider: 05/06/22 02:42 Mode of Arrival: Ambulatory Source of Information: Patient, Spouse and Medical Record Limitations: No Limitations Description of Symptoms (Recalled from ER Triage Doc. by RN): pt reports a dull pain in the left flank under the ribcage the pt states that it has been there a week and that the pain is just more consistant. the pt also c/o htn but upon arrival his bp had went back with in normal limits History of Present Illness HPI narrative: intermittent lt scapular pain over the last week - no fever/trauma or rash - complaint: flank pain Onset (ago): day(s) Consistency: intermittent Location: L flank Severity: moderate Associated symptoms: denies other symptoms Related Data Home Medications Medication Instructions Recorded Confirmed glipizide 5 mg tablet 5 mg PO BID Diabetes 05/02/17 07/31/21 omeprazole 20 mg capsule,delayed 20 mg PO BID GERD 05/02/17 07/31/21 release insulin aspart U-100 100 unit/mL 50 unit SQ BID DM 02/26/18 07/31/21 subcutaneous solution aspirin 81 mg tablet,delayed 81 mg PO DAILY HEART HEALTH 08/15/20 07/31/21 release lisinopril 20 1 tab PO DAILY 08/15/20 07/31/21 mg-hydrochlorothiazide 25 mg tablet Previous Rx's Medication Instructions Recorded atorvastatin 80 mg tablet 80 mg PO DAILY Cholesterol #90 tabs 10/18/21 atenolol 50 mg tablet 50 mg PO DAILY #90 tabs 10/30/21 Allergies Allergy/AdvReac Type Severity Reaction Status Date / Time No Known Allergies Allergy Verified 07/31/21 08:33 [facility] Disclaimer: The information contained in this section may have been updated after the patient was seen, as this information can be updated by other users. Medical History (Updated 05/06/22 @ 05:02 by Jersey Lira MD) Abnormal EKG Belching Diarrhea Social History Smoking Status: Former smoker alcohol intake: never substance use type: denies use current occupational status: other Travel in the last 8 weeks: Inside the [place] household members: spouse housing: house current occupation: remodeling contractor current occupational exposures/hazards: No caffeine: Yes ROS Obtained: Yes All systems reviewed & no additional complaints except as documented Physical Exam General General appearance: alert Head Head exam: normocephalic Eye Eye exam: Present PERRL and EOMI ENT ENT exam: Present mucous membranes moist Neck Neck exam: Present trachea midline Respiratory Respiratory exam: Absent respiratory distress Cardiovascular Cardiovascular exam: Present regular rate and systolic murmur Abdominal Exam Abdominal exam: Present soft; Absent tenderness or guarding Extremities Exam Extremities exam: Present full ROM Neurological Exam Neurological exam: Present alert, oriented X3 and CN II-XII intact Psychiatric Psychiatric exam: Present normal affect Skin Skin exam: Absent rash Medical Decision Making Medical Records Medical records reviewed: Yes I reviewed th
--- NOTE | 2022-05-06 02:57 | PC.NURSE ---
in room speaking to pt at this time
[2022-05-06 04:20] VITALS: BP 131/72; PULSE 58; O2SAT 96
[2022-05-06 04:53] LABS: Troponin I 0.08 ng/ml (0.00-0.034)
[2022-05-06 05:00] VITALS: BP 131/72; PULSE 61; RESP 18; TEMP 36.6; O2SAT 97
== END 2022-05-06 05:29 | disposition home or self-care (01) ==
PROVIDERS: Emergency Provider Emergency Medicine; PCP Family Medicine
DX: R07.89 Other chest pain (principal); I10 Essential (primary) hypertension; M25.512 Pain in left shoulder; Z87.891 Personal history of nicotine dependence
CPT/HCPCS: 71046; 74176; 80053; 84145; 84484; 85025; 85651; 86140; 93005; 99285

== ENCOUNTER 2022-05-08 08:19 | Day surgery (SDC) | payer MEDICARE, OTHER, SELFPAY ==
[2022-05-08] VITALS (11 sets, daily range): BP systolic 88–155; BP diastolic 55–92; PULSE 55–70; RESP 19–20; O2SAT 91–98; BMI 34.9
--- NOTE | 2022-05-08 07:26 | IR_ITS ---
APPROVED REPORT Patient Location: Outpatient Rd Scientist: CHRISTIAN Tubbs RT (R) PROCEDURES Left heart catheterization Left ventriculogram Selective coronary angiogram Drug-eluting stent deployment to the mid LAD INDICATION Elevated troponins, Angina pectoris class IV, Coronary artery disease Informed consent was obtained prior to the procedure. COMPLICATIONS None Estimated Blood Loss: Less than 10 mls TECHNIQUE One percent lidocaine used to anesthetize the right anterior aspect of the wrist. The right radial artery was accessed via the Seldinger technique. A 6 [place] sheath was placed in the right radial artery. 2.5 mg of verapamil, 800 mcg of nitroglycerin, 1mg Lidocaine and 5000 U Heparin were given through the arterial sheath. The papa catheter and 6 [place] JL 3 guide catheter were also used to perform left heart catheterization, left ventriculogram and selective coronary angiogram. At the end the diagnostic angiogram therapeutic heparin was administered giving a therapeutic ACT and the guide catheter was placed in the left main artery followed by a Choice PT extra-support wire down the LAD. A 3 mm x 18 mm resolute [place] stent was deployed in the mid LAD at 24 elda reducing the severe stenosis to 0%. NICOLE-3 flow was present before and after the procedure. At the end of the procedure the apparatus was removed the sheath was removed good hemostasis was achieved using TR banding patient was transferred to the postop putting in stable condition ANGIOGRAPHIC RESULTS The left main artery Normal The left anterior descending artery Is widely patent in the proximal segment with a 20 to 30% concentric stenosis. Which appears to be distal to a widely patent proximal LAD stent. Distal to a large diagonal artery is a focal concentric 80% stenosis with remaining vessel being widely patent with diffuse 20 and 30% stenoses. The LAD is large and wraps the apex The circumflex artery Is a dominant vessel and has proximal 40% concentric stenosis with additional 30 and 40% stenoses with mid vessel luminal irregularities nothing greater than 10 to 20% The right coronary artery Is nondominant and has diffuse proximal and mid vessel and distal 30% stenosis The WOO ventriculogram reveals Normal 65% The left ventricular end-diastolic pressure 10 mmHg IMPRESSION Elevated troponin which likely stems from the focal mid LAD stenosis and a large LAD which wraps the apex Successful stenting of the mid LAD severe disease reduced to 0% with 1 drug-eluting stent Normal ejection fraction Normal left ventricular end-diastolic pressure PLAN 1. Dual antiplatelet therapy 2. Risk factor modification 3. Cardiac rehabilitation 4. Avoidance of tobacco products 5. LDL less than 55 to be achieved with high intensity statin Electronically signed by : Joaquim See MD 05/08/2022 13:24:46
[2022-05-08 13:55] LABS: CATHL Activated Clotting Time 169 SEC (74-125)
--- NOTE | 2022-05-08 14:39 | HMH.PHACL ---
PHA Negative [facility]charge Med Director Of Workforce Development: Jarred Oneill has received discharge medication counseling on the following medications: BRILINTA 90 MG BID ASPIRIN 81 MG DAILY ATENOLOL 50 MG DAILY ATORVASTATIN 80 MG DAILY LISINOPRIL/HCTZ 20 MG/25 MG DAILY
== END 2022-05-08 15:32 | disposition home or self-care (01) ==
LOC: CATHLAB 08:21
PROVIDERS: PCP Emergency Medicine; Visit Provider Internal Medicine
DX: E11.9 Type 2 diabetes mellitus without complications (principal); E78.49 Other hyperlipidemia; I10 Essential (primary) hypertension; I25.118 Atherosclerotic heart disease of native coronary artery with other forms of angina pectoris; Z79.4 Long term (current) use of insulin; I25.2 Old myocardial infarction
CPT/HCPCS: 85347; 92928; 93458; 99152; C1725; C1760; C1769; C1876; C9600; J1644; Q9967

== ENCOUNTER → 2022-05-13 14:52 | Outpatient (CLI) | payer MEDICARE, OTHER, SELFPAY ==
[2022-05-13 16:09] LABS: Basophils # 0.1 K/mm3 (0-0.2); Basophils % 0.7 % (0.1-2.0); Eosinophils # 0.2 K/mm3 (0.0-0.4); Eosinophils % 2.1 % (0.1-12.0); Hematocrit 47.7 % (42.0-52.0); Hemoglobin 16.1 g/dL (14.1-18.0); Lymphocytes # 2.6 K/mm3 (0.7-4.5); Mean Corpuscular HGB Conc 33.6 g/dL (31.8-35.4); Monocytes # 0.6 K/mm3 (0.1-1.0); Monocytes % 4.8 % (1.7-9.3); Neutrophils # 8.3 K/mm3 (1.8-7.8); Neutrophils % 70.4 % (37.0-80.0); Platelet Count 281 K/mm3 (142-424); Red Blood Count 5.19 M/mm3 (4.60-6.20); Red Cell Distribution Width 13.4 % (11.5-17.5); White Blood Count 11.8 K/mm3 (4.8-10.8)
[2022-05-13 16:33] LABS: Alanine Aminotransferase 26 U/L (12-78); Albumin Level 4.5 g/dl (3.5-5.0); Alkaline Phosphatase 107 U/L (38-126); Anion Gap 12.6 mEq/L (5-15); Aspartate Amino Transferase 29 U/L (17-59); Bilirubin,Direct 0.1 mg/dl (0.0-0.4); Bilirubin,Indirect 0.3 mg/dL (0.0-0.9); Bilirubin,Total 0.4 mg/dl (0.2-1.3); Bilirubin,Unconjugated 0.4 mg/dL (0.0-1.1); Blood Urea Nitrogen 24 mg/dl (9-20); Calcium 9.4 mg/dl (8.4-10.2); Carbon Dioxide 28 mmol/L (22.0-30.0); Chloride 106 mmol/L (98-107); Chol/HDL Ratio 3.8 (1-3.5); Cholesterol 126 mg/dl (140-200); Estimated Glomerular Filt Rate 66 ml/min (>60); GFR (African American) 79 ML/MIN (>60); Glucose 145 mg/dl (74-100); HDL Cholesterol 33 mg/dl (40-60); Magnesium 1.8 mg/dl (1.6-2.3); Potassium 4.6 mmoL/L (3.5-5.1); Sodium 142 mmol/L (136-145); Triglycerides 153 mg/dl (30-150); VLDL Cholesterol 31 mg/dL (0-40)
[2022-05-13 16:44] LABS: Direct LDL Cholesterol 70.47 mg/dL (100-129)
[2022-05-13 16:50] LABS: Free T4 (Free Thyroxine) 0.91 ng/dl (0.78-2.19)
[2022-05-13 17:05] LABS: Thyroid Stimulating Hormone 1.82 uIU/mL (0.465-4.68)
== END ==
PROVIDERS: PCP Emergency Medicine; Visit Provider Physician Assistant
DX: E78.49 Other hyperlipidemia; I25.10 Atherosclerotic heart disease of native coronary artery without angina pectoris; E11.69 Type 2 diabetes mellitus with other specified complication; E66.01 Morbid (severe) obesity due to excess calories; I10 Essential (primary) hypertension; I21.4 Non-ST elevation (NSTEMI) myocardial infarction; R77.8 Other specified abnormalities of plasma proteins; Z68.36 Body mass index [BMI] 36.0-36.9, adult
CPT/HCPCS: 36415; 80048; 80061; 80076; 83735; 84439; 84443; 85025

== ENCOUNTER 2022-08-02 11:01 | Emergency (ER) | payer MEDICARE, OTHER, SELFPAY ==
--- NOTE | 2022-08-02 11:34 | CT_ITS ---
FINAL REPORT TECHNIQUE: Postcontrast axial images through the abdomen and pelvis were performed. This study was performed with techniques to keep radiation doses as low as reasonably achievable, (ALARA). Individualized dose reduction techniques using automated exposure control or adjustment of mA and/or kV according to the patient's size were employed. CLINICAL HISTORY: abd pain, diarrhea, urinary retention COMPARISON: 05/06/2022 FINDINGS: Abdomen: The lung bases are clear. The liver parenchyma is homogeneous. The gallbladder is absent. The spleen is unremarkable. The adrenals are normal. The pancreas is unremarkable. The kidneys enhance appropriately. The aorta is normal in caliber. No free fluid or adenopathy is identified. There is a small periampullary duodenal diverticulum. No findings for mechanical bowel obstruction are identified. A small umbilical hernia is identified. Pelvis: The appendix is normal. The urinary bladder is unremarkable. No free fluid, free air, abscess or adenopathy is identified. There are advanced changes of degenerative disc disease from L2-3 through L5-S1 with high-grade left neural foraminal narrowing at L2-3. IMPRESSION: Small periampullary duodenal diverticulum. Reviewed, Interpreted and Dictated by Mark Victoria MD Transcribed by Addis Tellez Authenticated and [facility]
[2022-08-02 11:38] VITALS: BP 142/76; PULSE 61; RESP 20; TEMP 37; O2SAT 96; BMI 35.2
--- NOTE | 2022-08-02 11:39 | HMH.EDGENADL ---
Discharge Plan Disposition Patient Disposition: Home, Self-Care Condition: Good Prescriptions Prescriptions: New tamsulosin [Flomax] 0.4 mg capsule 0.4 mg PO DAILY Qty: 30 0RF No Action glipizide 5 mg tablet 5 mg PO BID omeprazole 20 mg capsule,delayed release(DR/EC) 20 mg PO BID aspirin 81 mg tablet,delayed release (DR/EC) 81 mg PO DAILY empagliflozin 25 mg tablet 25 mg PO DAILY Rx Instructions: 1/2 tablet a day atorvastatin 80 mg tablet 80 mg PO DAILY Qty: 90 3RF clopidogrel [Plavix] 75 mg tablet 75 mg PO QDAY Qty: 90 3RF lisinopril-hydrochlorothiazide 20-25 mg tablet 1 tab PO DAILY Qty: 30 2RF atenolol 50 mg tablet 50 mg PO DAILY Qty: 90 2RF insulin aspart U-100 100 UNIT/ML solution 50 unit SQ BID Referrals Follow up/Referrals: Jersey Lira MD [Primary Care Provider] - See instructions Elvin Grijalva MD [Staff Physician] - See instructions Activity Restrictions/Add. Instructions Additional Instructions/Restrictions: You were evaluated in the emergency department today. At this time, we feel that your symptoms may be related to an enlarged prostate. Please excelsior picker your prescription at the pharmacy and take as prescribed. Call your primary care provider and let them know that you were evaluated here and started on this medication. It may cause changes in your blood pressure, so this will need to be monitored. Follow-up outpatient with urology. We are providing you with contact information for Dr. Grijalva. Return to the emergency department for any new or worsening symptoms. Clinical Impressions Clinical Impression: Increased urinary frequency Instructions Patient Instructions: DI for Urinary Retention in Men Discharge ED Provider: Deedee Corbett General Adult HPI General Chief complaint: Urogenital-Male Stated complaint: pain when urinates Time Seen by Provider: 08/02/22 11:33 History of Present Illness HPI narrative: This patient is a 72-year-old male with a history of CAD status post stenting on aspirin and Plavix, hypertension, hyperlipidemia, obesity, type 2 diabetes, and TIA presenting to the emergency department for evaluation with concern for difficulty urinating. He states that for the last several days, he has had increasing frequency and pressure in his lower abdomen. He states that he has difficulty starting his stream and feels like he is having trouble emptying his bladder. He denies any burning when he pees. He also complains that he has had profuse watery diarrhea over the last few days and lower abdominal cramping. He denies any history of prostate issues or cancer. He denies noting any blood in his urine. He has never had a Herrera. He denies any fevers, chills, nausea, vomiting, or other issues. Related Data Home Medications Medication Instructions Recorded Confirmed glipizide 5 mg tablet 5 mg PO BID Diabetes 05/02/17 06/10/22 omeprazole 20 mg capsule,delayed 20 mg PO BID GERD 05/02/17 06/10/22 release insulin aspart U-100 100 unit/mL 50 unit SQ BID DM 02/26/18 06/10/22 subcutaneous solution aspirin 81 mg tablet,delayed 81 mg PO DAILY [facility] 08/15/20 06/10/22 release empagliflozin 25 mg tablet 25 mg PO DAILY 05/24/22 06/10/22 Previous Rx's Medication Instructions Recorded atorvastatin 80 mg tablet 80 mg PO DAILY Cholesterol #90 tabs 10/18/21 clopidogrel 75 mg tablet (Plavix) 75 mg PO QDAY #90 tabs 05/14/22 atenolol 50 mg tablet 50 mg PO DAILY htn #90 tabs 05/22/22 lisinopril 20 1 tab PO DAILY htn #30 tabs 05/22/22 mg-hydrochlorothiazide 25 mg tablet tamsulosin 0.4 mg capsule (Flomax) 0.4 mg PO DAILY #30 caps 08/02/22 Allergies Allergy/AdvReac Type Severity Reaction Status Date / Time No Known Allergies Allergy Verified 06/10/22 09:45 [facility] Disclaimer: The information contained in this section may have been updated after the patient was seen, as this information ca
--- NOTE | 2022-08-02 11:55 | PC.NURSE ---
Post void residual 0ml. notified.
[2022-08-02 12:06] LABS: Microscopic, Urine URINE MICROSCOPIC (MICROSCOPIC)
[2022-08-02 12:11] LABS: Basophils # 0.1 K/mm3 (0-0.2); Basophils % 0.6 % (0.1-2.0); Eosinophils # 0.2 K/mm3 (0.0-0.4); Hematocrit 52.6 % (42.0-52.0); Hemoglobin 17.2 g/dL (14.1-18.0); Lymphocytes # 1.9 K/mm3 (0.7-4.5); Lymphocytes % 19.9 % (10-50); Mean Corpuscular HGB Conc 32.7 g/dL (31.8-35.4); Mean Corpuscular Hemoglobin 30.7 pg (27.0-31.2); Mean Corpuscular Volume 93.6 fl (80-94); Mean Platelet Volume 8.9 fl (7.4-10.4); Monocytes # 0.5 K/mm3 (0.1-1.0); Monocytes % 5.3 % (1.7-9.3); Neutrophils # 6.8 K/mm3 (1.8-7.8); Neutrophils % 72.2 % (37.0-80.0); Platelet Count 258 K/mm3 (142-424); Red Blood Count 5.62 M/mm3 (4.60-6.20); Red Cell Distribution Width 13.4 % (11.5-17.5); White Blood Count 9.4 K/mm3 (4.8-10.8)
[2022-08-02 12:14] LABS: Appearance,Urine CLEAR (Clear); Bilirubin,Urine Negative (Negative); Blood, Urine Negative (Negative); Color,Urine YELLOW (Yellow); Glucose,Urine (UA) 3+ (Negative); Ketones,Urine Negative (Negative); Leukocyte Esterase,Urine Negative (Negative); Nitrate,Urine Negative (Negative); Protein,Urine Negative (Negative); Specific Gravity, Urine <= 1.005 (1.005-1.030); Urobilinogen,Urine 0.2 EU/dl (0.2)
[2022-08-02 12:20] LABS: Chloride 100 mmol/L (98-107); Potassium 3.9 mmoL/L (3.5-5.1); Sodium 141 mmol/L (136-145)
[2022-08-02 12:22] LABS: Alanine Aminotransferase 28 U/L (12-78); Alkaline Phosphatase 78 U/L (38-126); Aspartate Amino Transferase 32 U/L (17-59); Bilirubin,Total 0.9 mg/dl (0.2-1.3); Blood Urea Nitrogen 17 mg/dl (9-20); Creatinine Clearance Estimated 95 mL/min (50-200); Estimated Glomerular Filt Rate 83 ml/min (>60); GFR (African American) 100 ML/MIN (>60)
[2022-08-02 12:23] LABS: Albumin Level 4.8 g/dl (3.5-5.0); Albumin/Globulin Ratio 1.7 (1.1-1.8); Anion Gap 15.9 mEq/L (5-15); Calcium 9.6 mg/dl (8.4-10.2); Carbon Dioxide 29 mmol/L (22.0-30.0); Globulin 2.9 g/dL (1.3-3.2); Glucose 94 mg/dl (74-100); Lipase 43 U/L (23-300); Total Protein,Serum 7.7 g/dl (6.3-8.2)
[2022-08-02 12:37] LABS: Bacteria,Urine Trace /lpf; Squamous Epithelial Cell,Urine Occasional #/hpf (0-5)
[2022-08-02 14:34] VITALS: BP 130/72; PULSE 62; RESP 18; TEMP 37; O2SAT 97
== END 2022-08-02 14:36 | disposition home or self-care (01) ==
LOC: UTC 11:09 → ER 11:32
PROVIDERS: Emergency Provider Emergency Medicine; PCP Emergency Medicine
DX: R30.9 Painful micturition, unspecified (principal); R35.0 Frequency of micturition
CPT/HCPCS: 74177; 80053; 81001; 83690; 85025; 99284; 99285; Q9967

== ENCOUNTER → 2022-09-25 23:22 | Outpatient (CLI) | payer MEDICARE, OTHER, SELFPAY ==
[2022-09-25 15:02] LABS: Prostate Specific Ag Screen 2.1 ng/ml (0.0-4.0)
== END ==
PROVIDERS: PCP Emergency Medicine; Visit Provider Emergency Medicine
DX: R35.0 Frequency of micturition (principal); Z12.5 Encounter for screening for malignant neoplasm of prostate; B95.2 Enterococcus as the cause of diseases classified elsewhere
CPT/HCPCS: 87086; 87088; 87186; G0103

== ENCOUNTER 2022-10-22 16:01 | Emergency (ER) | payer MEDICARE, OTHER, SELFPAY ==
[2022-10-22 16:02] VITALS: BP 132/65; PULSE 67; RESP 16; TEMP 36.7; O2SAT 97; BMI 29.0
--- NOTE | 2022-10-22 16:05 | HMH.EDGENADL ---
Discharge Plan Disposition Patient Disposition: Home, Self-Care Condition: Fair Prescriptions Prescriptions: No Action glipizide 5 mg tablet 5 mg PO BID omeprazole 20 mg capsule,delayed release(DR/EC) 20 mg PO BID aspirin 81 mg tablet,delayed release (DR/EC) 81 mg PO DAILY tamsulosin [Flomax] 0.4 mg capsule 0.4 mg PO DAILY Qty: 30 0RF finasteride [Proscar] 5 mg tablet 5 mg PO DAILY Qty: 30 0RF atorvastatin 80 mg tablet 80 mg PO DAILY Qty: 90 3RF clopidogrel [Plavix] 75 mg tablet 75 mg PO QDAY Qty: 90 3RF lisinopril-hydrochlorothiazide 20-25 mg tablet 1 tab PO DAILY Qty: 30 2RF atenolol 50 mg tablet 50 mg PO DAILY Qty: 90 2RF empagliflozin 25 mg tablet 25 mg PO DAILY Qty: 15 2RF Rx Instructions: 1/2 tablet a day sulfamethoxazole-trimethoprim [Bactrim DS] 800-160 mg tablet 1 tab PO BID 5 Days Qty: 10 0RF insulin aspart U-100 100 UNIT/ML solution 50 unit SQ BID Referrals Follow up/Referrals: Jersey Lira MD [Primary Care Provider] - See instructions ([place] ) Clinical Impressions Clinical Impression: Dysarthria, CVA (cerebral vascular accident) Print Language Print Language: Qatari Discharge ED Provider: Camilo Gorman Adult HPI General Chief complaint: Neuro Symptoms/Deficit Stated complaint: SLURRED SPEACH Time Seen by Provider: 10/22/22 16:05 Mode of Arrival: Ambulatory Source of Information: Patient Limitations: No Limitations History of Present Illness HPI narrative: Patient presents the emergency department with dysarthria since Friday. The patient reports intermittent briefly of dizziness Onset (ago): day(s) (3) Radiation: non-radiation Associated symptoms: denies other symptoms Related Data Home Medications Medication Instructions Recorded Confirmed glipizide 5 mg tablet 5 mg PO BID Diabetes 05/02/17 09/25/22 omeprazole 20 mg capsule,delayed 20 mg PO BID GERD 05/02/17 09/25/22 release insulin aspart U-100 100 unit/mL 50 unit SQ BID DM 02/26/18 09/25/22 subcutaneous solution aspirin 81 mg tablet,delayed 81 mg PO DAILY HEART HE[facility] 08/15/20 09/25/22 release Previous Rx's Medication Instructions Recorded atorvastatin 80 mg tablet 80 mg PO DAILY Cholesterol #90 tabs 10/18/21 clopidogrel 75 mg tablet (Plavix) 75 mg PO QDAY #90 tabs 05/14/22 atenolol 50 mg tablet 50 mg PO DAILY htn #90 tabs 05/22/22 lisinopril 20 1 tab PO DAILY htn #30 tabs 05/22/22 mg-hydrochlorothiazide 25 mg tablet finasteride 5 mg tablet (Proscar) 5 mg PO DAILY #30 tabs 09/25/22 tamsulosin 0.4 mg capsule (Flomax) 0.4 mg PO DAILY #30 caps 09/25/22 empagliflozin 25 mg tablet 25 mg PO DAILY #15 tabs 09/27/22 sulfamethoxazole 800 1 tab PO BID 5 days #10 tabs 10/03/22 mg-trimethoprim 160 mg tablet (Bactrim DS) Allergies Allergy/AdvReac Type Severity Reaction Status Date / Time No Known Allergies Allergy Verified 09/25/22 09:15 [facility] Disclaimer: The information contained in this section may have been updated after the patient was seen, as this information can be updated by other users. Medical History Abnormal EKG Belching Diarrhea Surgical History History of colonoscopy History of heart artery stent Social History Smoking Status: Never smoker alcohol intake: never substance use type: denies use current occupational status: other Travel in the last 8 weeks: None household members: spouse housing: house marital status: current occupation: remodeling contractor current occupational exposures/hazards: No caffeine: Yes ROS Obtained: Yes Systems reviewed as appropriate & no additional complaints except as documented Eyes Eyes: Denies eye pain ENT Ears, Nose, Mouth, and Throat: Reports dizzine
--- NOTE | 2022-10-22 16:16 | CT_ITS ---
FINAL REPORT CLINICAL HISTORY: dysarthria SLURRED SPEECH SINCE FRIDAY. COMPARISON: January 09, 2021 FINDINGS: Axial images of the head were obtained without contrast. Coronal reformatted images were also obtained. This study was performed with techniques to keep radiation doses as low as reasonably achievable (ALARA). Individualized dose reduction techniques using automated exposure control or adjustment of mA and/or kV according to the patient''s size were employed. There is generalized age-appropriate atrophy. Periventricular low-attenuation areas are seen consistent with mild chronic ischemic changes. There are new foci of low attenuation involving the superior right cerebellar hemisphere consistent with acute to subacute infarcts. There is no evidence of intracranial hemorrhage or mass. There is no evidence of shift of the midline structures. No skull abnormality is seen on the bone window images. IMPRESSION: Atrophy and mild periventricular chronic ischemic changes. Superior right cerebellar foci of low-attenuation consistent with acute to subacute infarcts. Authenticated and [facility]
[2022-10-22 16:30] VITALS: BP 123/71; PULSE 63; O2SAT 97
[2022-10-22 17:00] VITALS: BP 114/75; PULSE 61; O2SAT 97
--- NOTE | 2022-10-22 17:18 | CT_ITS ---
PROCEDURE INFORMATION: Exam: CTA Head With Contrast, Arteriography Exam date and time: 10/22/2022 6:11 PM Age: 72 years old Clinical indication: Speech disturbance; Slurred speech TECHNIQUE: Imaging protocol: Computed tomographic angiography of the head with contrast. Exam focused on the arteries. 3D rendering (Not supervised by radiologist): MIP and/or 3D reconstructed images were created by the technologist. Radiation optimization: All CT scans at this facility use at least one of these dose optimization techniques: automated exposure control; mA and/or kV adjustment per patient size (includes targeted exams where dose is matched to clinical indication); or iterative reconstruction. Contrast material: ISOVUE 370; Contrast volume: 100 ml; Contrast route: INTRAVENOUS (IV); REPORTING DATA: Count of CT and Cardiac NM exams in prior 12 months: This patient has received 2 known CTs and 0 known cardiac nuclear medicine studies in the 12 months prior to the current study. COMPARISON: CT HEAD/BRAIN WO CON 10/22/2022 4:22 PM FINDINGS: ANTERIOR CIRCULATION: Right internal carotid artery: Intracranial segment is patent with no significant stenosis. No aneurysm. Right middle cerebral artery: No occlusion or significant stenosis. No aneurysm. Right anterior cerebral artery: No occlusion or significant stenosis. No aneurysm. Left internal carotid artery: Intracranial segment is patent with no significant stenosis. No aneurysm. Left middle cerebral artery: No occlusion or significant stenosis. No aneurysm. Left anterior cerebral artery: No occlusion or significant stenosis. No aneurysm. POSTERIOR CIRCULATION: Right vertebral artery: No occlusion or significant stenosis. No aneurysm. Left vertebral artery: No occlusion or significant stenosis. No aneurysm. Basilar artery: No occlusion or significant stenosis. No aneurysm. Right posterior cerebral artery: No occlusion or significant stenosis. No aneurysm. Left posterior cerebral artery: No occlusion or significant stenosis. No aneurysm. Brain: No definite mass, mass effect, or midline shift. Cerebral ventricles: No ventriculomegaly. Bones/joints: Enhancing anterior skull base midline mass measuring 2.5 x 2.6 x 2.9 cm that effaces the cribriform plate and associated vascular supply from this area. Soft tissues: Unremarkable. IMPRESSION: Enhancing anterior skull base midline mass measuring 2.5 x 2.6 x 2.9 cm that effaces the cribriform plate and associated vascular supply from this area. Recommend further evaluation with contrast enhanced MRI with and without contrast for characterization. No CT angiography evidence of vascular occlusion or significant stenosis.
--- NOTE | 2022-10-22 17:19 | CT_ITS ---
PROCEDURE INFORMATION: Exam: CTA Neck With Contrast Exam date and time: 10/22/2022 6:11 PM Age: 72 years old Clinical indication: Speech disturbance; Dysarthria and anarthria; Additional info: Slurred speech TECHNIQUE: Imaging protocol: Computed tomographic angiography of the neck with contrast. 3D rendering (Not supervised by radiologist): MIP and/or 3D reconstructed images were created by the technologist. Radiation optimization: All CT scans at this facility use at least one of these dose optimization techniques: automated exposure control; mA and/or kV adjustment per patient size (includes targeted exams where dose is matched to clinical indication); or iterative reconstruction. Contrast material: ISOVUE 370; Contrast volume: 100 ml; Contrast route: INTRAVENOUS (IV); REPORTING DATA: Count of CT and Cardiac NM exams in prior 12 months: This patient has received 2 known CTs and 0 known cardiac nuclear medicine studies in the 12 months prior to the current study. COMPARISON: CT HEAD/BRAIN WO CON 10/22/2022 4:22 PM FINDINGS: Right common carotid artery: Moderate calcific atherosclerotic disease of the right carotid bulb without significant stenosis. Right internal carotid artery: No stenosis of the extracranial segment. No dissection or occlusion. Right external carotid artery: No occlusion or stenosis of the origin. Left common carotid artery: Moderate calcific atherosclerotic disease of the left carotid bulb without significant stenosis. Left internal carotid artery: No stenosis of the extracranial segment. No dissection or occlusion. Left external carotid artery: No occlusion or stenosis of the origin. Right vertebral artery: No stenosis. No dissection or occlusion. Left vertebral artery: No stenosis. No dissection or occlusion. Soft tissues: Normal. No significant soft tissue swelling. Bones/joints: Moderate loss of intervertebral disc space with degenerative changes at C3 through C7 with endplate and facet osteophytosis resulting in moderate bilateral neural foraminal stenosis at these levels. IMPRESSION: No stenosis or occlusion. REFERENCES: NASCET CRITERIA. The degree of stenosis in the cervical segment of the internal carotid artery is based on NASCET criteria. Normal is no stenosis. Mild is less than 50% stenosis. Moderate is 50-69% stenosis. Severe is 70% to 99% stenosis. Total occlusion is no detectable patent lumen.
[2022-10-22 17:31] VITALS: BP 119/64; PULSE 60; O2SAT 96
[2022-10-22 17:42] LABS: Chloride 101 mmol/L (98-107)
[2022-10-22 17:43] LABS: Basophils # 0.1 K/mm3 (0-0.2); Basophils % 0.8 % (0.1-2.0); Eosinophils # 0.2 K/mm3 (0.0-0.4); Eosinophils % 1.8 % (0.1-12.0); Hematocrit 48.9 % (42.0-52.0); Lymphocytes # 2.3 K/mm3 (0.7-4.5); Lymphocytes % 24.2 % (10-50); Mean Corpuscular HGB Conc 32.8 g/dL (31.8-35.4); Mean Corpuscular Hemoglobin 29.8 pg (27.0-31.2); Mean Corpuscular Volume 90.8 fl (80-94); Mean Platelet Volume 8.9 fl (7.4-10.4); Monocytes # 0.5 K/mm3 (0.1-1.0); Monocytes % 5.1 % (1.7-9.3); Neutrophils # 6.6 K/mm3 (1.8-7.8); Neutrophils % 68.1 % (37.0-80.0); Platelet Count 264 K/mm3 (142-424); Potassium 3.8 mmoL/L (3.5-5.1); Red Blood Count 5.38 M/mm3 (4.60-6.20); Red Cell Distribution Width 13.2 % (11.5-17.5); Sodium 141 mmol/L (136-145); White Blood Count 9.7 K/mm3 (4.8-10.8)
[2022-10-22 17:45] LABS: Blood Urea Nitrogen 21 mg/dl (9-20); Creatinine Clearance Estimated 93 mL/min (50-200); Estimated Glomerular Filt Rate 95 ml/min (>60); GFR (African American) 115 ML/MIN (>60)
[2022-10-22 17:46] LABS: Anion Gap 14.8 mEq/L (5-15); Calcium 9.7 mg/dl (8.4-10.2); Carbon Dioxide 29 mmol/L (22.0-30.0); Glucose 87 mg/dl (74-100)
[2022-10-22 18:00] VITALS: BP 105/69; PULSE 60; O2SAT 95
[2022-10-22 20:23] VITALS: BP 106/81; PULSE 67; RESP 16; TEMP 36.7; O2SAT 98
== END 2022-10-22 20:24 | disposition home or self-care (01) ==
PROVIDERS: Emergency Provider Emergency Medicine; PCP Emergency Medicine
DX: I63.9 Cerebral infarction, unspecified (principal)
CPT/HCPCS: 70450; 70496; 70498; 80048; 85025; 99285; Q9967

== ENCOUNTER → 2022-10-23 10:11 | Outpatient (CLI) | payer MEDICARE, OTHER, SELFPAY ==
--- NOTE | 2022-10-23 10:11 | MR_ITS ---
FINAL REPORT CLINICAL HISTORY: slurred speech yesterday abnormal head ct done yesterday in er 21 ml prohance given FINDINGS: Multiplanar MR imaging of the brain was performed without and with contrast. There is mild age-appropriate atrophy. Scattered foci of increased T2 signal are seen in the cerebral white matter that have a nonspecific appearance but likely represent mild chronic ischemic/gliotic changes. There is no evidence of intracranial hemorrhage. No abnormal ventricular dilatation is identified. There is no evidence of shift of the midline structures. There are foci of restricted diffusion in the superior right cerebellar hemisphere. Small foci of contrast enhancement is seen in this region. The appearance is consistent with early subacute infarct. There is a 29 x 23 mm extra-axial enhancing mass in the inferior frontal region consistent with a meningioma. There is mild adjacent edema in the brain. Normal major vessel vascular flow voids are seen. IMPRESSION: Early subacute infarct in the superior right cerebellar hemisphere. Extra-axial mass in the inferior frontal region consistent with a meningioma. Reviewed, Interpreted and Dictated by Guillermo Reece III, MD Transcribed by Addis Tellez Authenticated and [facility]
== END ==
PROVIDERS: PCP Emergency Medicine; Visit Provider Emergency Medicine
DX: R90.89 Other abnormal findings on diagnostic imaging of central nervous system (principal); R47.81 Slurred speech
CPT/HCPCS: 70553; A9576

== ENCOUNTER 2022-11-11 06:51 | Day surgery (SDC) | payer MEDICARE, OTHER, SELFPAY ==
[2022-11-11 07:01] VITALS: BMI 33.3
[2022-11-11 07:28] VITALS: BP 136/79; PULSE 62; RESP 19; O2SAT 95
[2022-11-11 08:31] VITALS: BP 146/81; PULSE 63; RESP 19; O2SAT 97
--- NOTE | 2022-11-11 11:00 | P.PCN_ITS ---
[facility] Loop Recorder Date: 11/11/22 Time: 08:30 Procedure Performed:: Implantation of loop recorder Indication:: Cryptogenic stroke Technique:: Patient was brought to the cardiac Bus And Sys Integration Senior Manager. After informed consent obtained, 1% lidocaine with epinephrine was used to anesthetize the site along the left anterior aspect of the chest near the sternal border. Using the preformed scalpel, an incision was made and using the supplied preloaded apparatus, the loop recorder was placed subcutaneously without difficulty. Following the deployment of the loop recorder interrogation of the device was performed to ensure appropriate voltage was being detected. Once this was verified, Steri- Strips were placed over the incision and the patient was prepped to discharge home. Patient tolerated the procedure well with minimal discomfort. Impression:: Successful implantation of loop recorder Serial Number:: [employer]it jot DX Model number [id number] Serial #[id number] Plan:: Routine postop care
== END 2022-11-11 09:08 | disposition home or self-care (01) ==
PROVIDERS: PCP Emergency Medicine; Visit Provider Internal Medicine
DX: I63.441 Cerebral infarction due to embolism of right cerebellar artery (principal); I25.10 Atherosclerotic heart disease of native coronary artery without angina pectoris; I10 Essential (primary) hypertension; E11.9 Type 2 diabetes mellitus without complications; D32.9 Benign neoplasm of meninges, unspecified; Z79.4 Long term (current) use of insulin; Z79.899 Other long term (current) drug therapy
CPT/HCPCS: 33285; C1764

== ENCOUNTER → 2022-12-03 09:24 | Outpatient (CLI) | payer MEDICARE, OTHER, SELFPAY ==
--- NOTE | 2022-12-03 | CA_ITS ---
APPROVED REPORT EXAM: Comprehensive 2D, Doppler, and color-flow Echocardiogram Billing And Accounting Staff Assistant: Lupe Lackey, RT(R) Ht: 5 ft 7 in Wt: 218lbs BSA: 2.10 BP: 126/74 mmHg Indications: CVA, ordered with definity, HTN, hyperlipidemia, Loop recorder, Abn EKG, CAD, obesity Echo Enhancing Agent Indication: Rule out thrombus Agent(s) / Amount(s) Used: Definity 2 cc 2D Dimensions LVOT 2.02 cm (M/F) 1.5-2.5 M-Mode Dimensions RVDd 2.93 cm (0.9-2.6) LA Diam 4.28 cm (1.9-4.0) LVDd 4.71 cm (3.5-5.7) Ao Diam 3.25 cm (2.0-3.7) LVDs 3.61 cm (3.5-5.7) IVSd 1.10 cm (0.6-1.1) PWd 0.87 cm (0.6-1.1) EF (Teich) 46.70% FS 23.40% EDV (Teich) 102.90 mL ESV (Teich) 54.80 mL LV Diastology E Decel Time 263.00 (160-240 msec) E/A Ratio 0.6 MED E' 5.00 (< 7 cm/sec) E'/MED E' Ratio 9.14 (>14) LAT E' 7.30 (<10 cm/sec) E/LAT E' Ratio 6.26 (>14) Mitral Valve MV E Max Martinez. 46.00 (40-130 cm/s) MV A Velocity 74.00 (40-130 cm/s) E/A Ratio 0.62 MV Decel. Time 263.00 (160-240 ms) MV PHT 77.00 ms Left Ventricle The left ventricle is normal size. The left ventricular systolic function is normal. The left ventricular ejection fraction is within the normal range. There is increased LV wall thickness. There is normal LV segmental wall motion. Transmitral Doppler flow pattern suggests impaired LV relaxation. Ultrasound enhancing agent administration demonstrates possible layered apical filling defect measuring 1.0 cm x 0.5 cm, suggestive of possible apical LV thrombus. LVEF is 60%. Right Ventricle The right ventricle is moderately dilated. The right ventricular systolic function is normal. Atria The left atrium size is normal. The right atrium size is normal. Aortic Valve The aortic valve is mildly thickened. There is no aortic valvular stenosis. Trace aortic regurgitation. Mitral Valve The mitral valve is normal in structure. No evidence of mitral valve stenosis. Trace mitral regurgitation. Tricuspid Valve Tricuspid valve leaflets are thin and pliable. Trace tricuspid regurgitation. There is insufficient TR jet to estimate RVSP. Pulmonic Valve The pulmonary valve is normal in structure. Trace pulmonic regurgitation. Great Vessels The aortic root is normal in size. The ascending aorta is not well visualized. The IVC is not well visualized. Pericardium There is no pericardial effusion. Other Information Study Quality: Technically Difficult Conclusion This was a technically difficult study due to poor accoustic windows. Normal biventricular systolic function. Moderate RV dilation. No significant valvular disease. Ultrasound enhancing agent administration demonstrates possible layered apical filling defect measuring 1.0 cm x 0.5 cm, suggestive of possible apical LV thrombus. Further evaluation is recommended Electronically signed by : Sintia Price, 12/03/2022 17:20:33
== END ==
PROVIDERS: PCP Emergency Medicine; Visit Provider Nurse Practitioner Family
DX: I25.10 Atherosclerotic heart disease of native coronary artery without angina pectoris; I63.9 Cerebral infarction, unspecified
CPT/HCPCS: 93306; Q9957

== ENCOUNTER 2022-12-09 12:13 | Outpatient (CLI) | payer MEDICARE, OTHER, SELFPAY ==
[2022-12-09 12:54] LABS: PHA INR Fingerstick 1.5 (0.9-1.1)
== END 2022-12-09 12:57 ==
LOC: ACC 12:15
PROVIDERS: PCP Emergency Medicine; Visit Provider Nurse Practitioner
DX: Z79.01 Long term (current) use of anticoagulants (principal); Z51.81 Encounter for therapeutic drug level monitoring
CPT/HCPCS: 85610; G0463

== ENCOUNTER 2022-12-13 07:17 | Outpatient (CLI) | payer MEDICARE, OTHER, SELFPAY ==
[2022-12-13 12:03] LABS: PHA INR Fingerstick 2.5 (0.9-1.1)
== END 2022-12-13 12:26 ==
LOC: ACC 07:18
PROVIDERS: PCP Emergency Medicine; Visit Provider Nurse Practitioner
DX: Z79.01 Long term (current) use of anticoagulants (principal); Z51.81 Encounter for therapeutic drug level monitoring
CPT/HCPCS: 85610; 99211; G0463

== ENCOUNTER 2022-12-16 07:26 | Outpatient (CLI) | payer MEDICARE, OTHER, SELFPAY ==
[2022-12-16 15:07] LABS: PHA INR Fingerstick 2.3 (0.9-1.1)
== END 2022-12-16 15:39 ==
PROVIDERS: PCP Emergency Medicine; Visit Provider Nurse Practitioner
DX: Z79.01 Long term (current) use of anticoagulants (principal); Z51.81 Encounter for therapeutic drug level monitoring
CPT/HCPCS: 85610; 99211; G0463

== ENCOUNTER 2022-12-31 07:26 | Outpatient (CLI) | payer MEDICARE, OTHER, SELFPAY ==
[2022-12-31 14:35] LABS: PHA INR Fingerstick 2.1 (0.9-1.1)
== END 2022-12-31 14:36 ==
LOC: ACC 07:27
PROVIDERS: PCP Emergency Medicine; Visit Provider Nurse Practitioner
DX: Z79.01 Long term (current) use of anticoagulants (principal); Z51.81 Encounter for therapeutic drug level monitoring
CPT/HCPCS: 85610; 99211; G0463

== ENCOUNTER 2023-01-20 07:46 | Outpatient (CLI) | payer MEDICARE, OTHER, SELFPAY | END 2023-01-20 13:03 | LOC: ACC 07:47 | PROVIDERS: PCP Emergency Medicine; Visit Provider Nurse Practitioner | DX: Z79.01 Long term (current) use of anticoagulants (principal); Z51.81 Encounter for therapeutic drug level monitoring | CPT/HCPCS: 85610; 99211; G0463 ==

== ENCOUNTER 2023-02-17 07:57 | Outpatient (CLI) | payer MEDICARE, OTHER, SELFPAY ==
[2023-02-17 12:56] LABS: PHA INR Fingerstick 2.1 (0.9-1.1)
== END 2023-02-17 13:17 ==
LOC: ACC 07:58
PROVIDERS: PCP Emergency Medicine; Visit Provider Nurse Practitioner
DX: Z79.01 Long term (current) use of anticoagulants (principal); Z51.81 Encounter for therapeutic drug level monitoring
CPT/HCPCS: 85610; 99211; G0463

== ENCOUNTER 2023-02-21 21:52 | Observation (INO) | payer MEDICARE, OTHER, SELFPAY ==
[2023-02-21] VITALS (7 sets, daily range): BP systolic 123–144; BP diastolic 71–78; PULSE 53–64; RESP 12–20; TEMP 36.8; O2SAT 91–96; BMI 33.9
--- NOTE | 2023-02-21 22:03 | ECG_ITS ---
APPROVED REPORT Exam: Resting ECG HR:54 bpm ECG Measurements Heart Rate 54 AXES ME 215 P 5 QRSd 94 QRS 22 QT 437 T 37 QTc 423 Conclusion SINUS BRADYCARDIA WITH FIRST DEGREE AV BLOCK ABNORMAL ECG UNCONFIRMED REPORT Electronically signed by : Aman Boo MD 02/22/2023 18:58:44
--- NOTE | 2023-02-21 22:15 | CT_ITS ---
PROCEDURE INFORMATION: Exam: CTA Head With Contrast, Arteriography Exam date and time: 02/21/2023 10:57 PM Age: 73 years old Clinical indication: Dizziness and giddiness; Additional info: Known lv thrombus; Sudden dizziness TECHNIQUE: Imaging protocol: Computed tomographic angiography of the head with contrast. Exam focused on the arteries. 3D rendering (Not supervised by radiologist): MIP and/or 3D reconstructed images were created by the technologist. Radiation optimization: All CT scans at this facility use at least one of these dose optimization techniques: automated exposure control; mA and/or kV adjustment per patient size (includes targeted exams where dose is matched to clinical indication); or iterative reconstruction. Contrast material: ISOVUE; Contrast volume: 100 ml; Contrast route: INTRAVENOUS (IV); REPORTING DATA: Count of CT and Cardiac NM exams in prior 12 months: This patient has received 5 known CTs and 0 known cardiac nuclear medicine studies in the 12 months prior to the current study. COMPARISON: CT ANGIO HEAD 10/22/2022 6:11 PM FINDINGS: ANTERIOR CIRCULATION: Right internal carotid artery: Intracranial segment is patent with no significant stenosis. No aneurysm. Right middle cerebral artery: No occlusion or significant stenosis. No aneurysm. Right anterior cerebral artery: No occlusion or significant stenosis. No aneurysm. Left internal carotid artery: Intracranial segment is patent with no significant stenosis. No aneurysm. Left middle cerebral artery: No occlusion or significant stenosis. No aneurysm. Left anterior cerebral artery: No occlusion or significant stenosis. No aneurysm. POSTERIOR CIRCULATION: Right vertebral artery: Atretic intracranial right vertebral artery. Left vertebral artery: Dominant intracranial left vertebral artery. Calcific plaque left intracranial vertebral artery axial image . Basilar artery: No occlusion or significant stenosis. No aneurysm. Right posterior cerebral artery: origin right posterior cerebral artery. Left posterior cerebral artery: No occlusion or significant stenosis. No aneurysm. Brain: No evidence for intracranial hemorrhage or extra-axial fluid collections. Old infarcts right cerebellar hemisphere similar to 10/23/2022 MRI exam. Small old lacunar infarcts in the cerebellar vermis . Cerebral ventricles: Mild ventricular prominence similar to the prior study. Bones/joints: Unremarkable. No acute fracture. Soft tissues: Unremarkable. Other findings: No evidence for large vessel occlusion. Middle and anterior cerebral artery segments are patent. Re-demonstration nearly isodense mass at the level of the planum sphenoidale measuring 2.8 x 2.1 cm; similar to 10/23/2022. There is moderate perilesional edema . IMPRESSION: 1. No evidence for large vessel occlusion. 2. Middle and anterior cerebral artery segments are patent. 3. Dominant intracranial left vertebral artery. Calcific plaque left intracranial vertebral artery axial image . CTA neck images show probable origin stenosis of the left cervical vertebral artery. Contrast-enhanced MRA of the neck may be helpful to further delineate this finding. 4. Atretic intracranial right vertebral artery. 5. origin right posterior cerebral artery. 6. Re-demonstration nearly isodense mass at the level of the planum sphenoidale measuring 2.8 x 2.1 cm; similar to 10/23/2022. Peripheral enhancement is seen on sagittal image 1002/80 consistent with vascular supply to the meningioma. 7. There is moderate perilesional edema . 8. No evidence for intracranial hemorrhage or extra-axial fluid collections. 9. Old infarcts right cerebellar hemisphere similar to 10/23/2022 MRI exa
--- NOTE | 2023-02-21 22:15 | CT_ITS ---
PROCEDURE INFORMATION: Exam: CT Head Without Contrast Exam date and time: 02/21/2023 10:50 PM Age: 73 years old Clinical indication: Dizziness; Additional info: Known lv thrombus; Sudden dizziness TECHNIQUE: Imaging protocol: Computed tomography of the head without contrast. Radiation optimization: All CT scans at this facility use at least one of these dose optimization techniques: automated exposure control; mA and/or kV adjustment per patient size (includes targeted exams where dose is matched to clinical indication); or iterative reconstruction. REPORTING DATA: Count of CT and Cardiac NM exams in prior 12 months: This patient has received 5 known CTs and 0 known cardiac nuclear medicine studies in the 12 months prior to the current study. COMPARISON: MR HEAD/BRAIN WO/W CON 10/23/2022 10:10 AM FINDINGS: Brain: No evidence for intracranial hemorrhage or extra-axial fluid collections. Old infarcts right cerebellar hemisphere . This is seen on axial image 07/13 -. Small old lacunar infarcts in the cerebellar vermis axial image 07/18. Intrinsically dense cerebral vessels; difficult to evaluate. Cerebral ventricles: Mild ventricular prominence similar to the prior study. Pituitary gland and sella: Negative Paranasal sinuses: Visualized sinuses are unremarkable. No fluid levels. Mastoid air cells: Visualized mastoid air cells are well aerated. Orbital cavities: Negative. Parotid and submandibular glands: Negative Bones/joints: Unremarkable. No acute fracture. Soft tissues: Unremarkable. Vasculature: Negative. Other findings: Re-demonstration nearly isodense mass at the level of the planum sphenoidale measuring 2.8 x 2.1 cm; similar to 10/23/2022. There is moderate perilesional edema axial image /34. IMPRESSION: 1. Re-demonstration nearly isodense mass at the level of the planum sphenoidale measuring 2.8 x 2.1 cm; similar to 10/23/2022. Findings consistent with planum sphenoidale meningioma. 2. There is moderate perilesional edema around the meningioma axial image /. 3. No evidence for intracranial hemorrhage or extra-axial fluid collections. 4. Old infarcts with focal encephalomalacia right cerebellar hemisphere with expected interval evolution compared to 10/23/2022 MRI exam. This is seen on axial image 07/13 -. 5. Small old lacunar infarcts with foci of encephalomalacia in the cerebellar vermis axial image 07/18 with expected interval evolution compared with MRI from 10/23/2022. 6. Mild ventricular prominence similar to the prior study. 7. Intrinsically dense cerebral vessels; difficult to evaluate.
--- NOTE | 2023-02-21 22:15 | CT_ITS ---
PROCEDURE INFORMATION: Exam: CTA Neck With Contrast Exam date and time: 02/21/2023 10:57 PM Age: 73 years old Clinical indication: Dizziness and giddiness; Additional info: Known lv thrombus; Sudden dizziness TECHNIQUE: Imaging protocol: Computed tomographic angiography of the neck with contrast. Exam focused on the cervical segments of the vasculature. 3D rendering (Not supervised by radiologist): MIP and/or 3D reconstructed images were created by the technologist. Radiation optimization: All CT scans at this facility use at least one of these dose optimization techniques: automated exposure control; mA and/or kV adjustment per patient size (includes targeted exams where dose is matched to clinical indication); or iterative reconstruction. Contrast material: ISOVUE; Contrast volume: 100 ml; Contrast route: INTRAVENOUS (IV); REPORTING DATA: Count of CT and Cardiac NM exams in prior 12 months: This patient has received 5 known CTs and 0 known cardiac nuclear medicine studies in the 12 months prior to the current study. COMPARISON: CT ANGIO NECK 10/22/2022 6:11 PM FINDINGS: Right common carotid artery: No stenosis. No dissection or occlusion. Right internal carotid artery: No stenosis of the extracranial segment. No dissection or occlusion. Right external carotid artery: No occlusion or stenosis of the origin. Left common carotid artery: No stenosis. No dissection or occlusion. Left internal carotid artery: No stenosis of the extracranial segment. No dissection or occlusion. Left external carotid artery: No occlusion or stenosis of the origin. Right vertebral artery: Diminutive right vertebral artery which is atretic along its intracranial portion. Left vertebral artery: Dominant left vertebral artery. Calcific plaque obscures the origin of the left vertebral artery. Focal origin stenosis not excluded. Aorta: Mild calcific atherosclerosis of the aortic arch. Soft tissues: Normal. No significant soft tissue swelling. Bones/joints: Multilevel degenerative change of the cervical spine. Other findings: Mild calcific atherosclerosis of the carotid bifurcations without hemodynamically significant stenosis. Mild calcific plaque bilateral common carotid arteries. IMPRESSION: 1. No evidence for occlusion or dissection of the cervical vessels. 2. Mild calcific atherosclerosis of the carotid bifurcations without hemodynamically significant stenosis. 3. Mild calcific plaque bilateral common carotid arteries. 4. Dominant left vertebral artery. 5. Diminutive cervical right vertebral artery which is atretic along its intracranial portion. 6. Calcific plaque obscures the origin of the left vertebral artery. Focal origin stenosis not excluded. 7. Multilevel degenerative change of the cervical spine. 8. Mild calcific atherosclerosis of the aortic arch. REFERENCES: NASCET CRITERIA. The degree of stenosis in the cervical segment of the internal carotid artery is based on NASCET criteria. Normal is no stenosis. Mild is less than 50% stenosis. Moderate is 50-69% stenosis. Severe is 70% to 99% stenosis. Total occlusion is no detectable patent lumen.
[2023-02-21 22:16] LABS: POC Glucose,Bedside 82 (70-110)
[2023-02-21 22:27] LABS: Chloride 107 mmol/L (98-107); Potassium 3.4 mmoL/L (3.5-5.1); Sodium 140 mmol/L (136-145)
[2023-02-21 22:27] LABS: POC Glucose,Bedside 81 (70-110)
[2023-02-21 22:30] LABS: Alanine Aminotransferase 31 U/L (12-78); Albumin Level 4.3 g/dl (3.5-5.0); Albumin/Globulin Ratio 1.6 (1.1-1.8); Alkaline Phosphatase 91 U/L (38-126); Anion Gap 9.4 mEq/L (5-15); Aspartate Amino Transferase 36 U/L (17-59); Bilirubin,Total 0.4 mg/dl (0.2-1.3); Blood Urea Nitrogen 23 mg/dl (9-20); Carbon Dioxide 27 mmol/L (22.0-30.0); Creatinine Clearance Estimated 93 mL/min (50-200); Estimated Glomerular Filt Rate 94 ml/min (>60); GFR (African American) 114 ML/MIN (>60); Globulin 2.7 g/dL (1.3-3.2)
[2023-02-21 22:31] LABS: Calcium 8.8 mg/dl (8.4-10.2); Glucose 82 mg/dl (74-100)
[2023-02-21 22:32] LABS: Basophils # 0.1 K/mm3 (0-0.2); Basophils % 0.7 % (0.1-2.0); Eosinophils # 0.3 K/mm3 (0.0-0.4); Eosinophils % 2.9 % (0.1-12.0); Hematocrit 46.3 % (42.0-52.0); Hemoglobin 16.1 g/dL (14.1-18.0); INR 2.17 (0.9-1.1); Lymphocytes # 2.6 K/mm3 (0.7-4.5); Lymphocytes % 27.9 % (10-50); Mean Corpuscular HGB Conc 34.7 g/dL (31.8-35.4); Mean Corpuscular Hemoglobin 31.5 pg (27.0-31.2); Mean Corpuscular Volume 90.6 fl (80-94); Monocytes # 0.6 K/mm3 (0.1-1.0); Monocytes % 6.8 % (1.7-9.3); Neutrophils # 5.8 K/mm3 (1.8-7.8); Neutrophils % 61.8 % (37.0-80.0); Platelet Count 218 K/mm3 (142-424); Prothrombin Time 22.3 seconds (10.1-12.5); Red Blood Count 5.11 M/mm3 (4.60-6.20); Red Cell Distribution Width 13.7 % (11.5-17.5); White Blood Count 9.3 K/mm3 (4.8-10.8)
--- NOTE | 2023-02-21 22:40 | HMH.EDGENADL ---
Discharge Plan Disposition Patient Disposition: Admitted Prescriptions Prescriptions: No Action glipizide 5 mg tablet 5 mg PO BID omeprazole 20 mg capsule,delayed release(DR/EC) 20 mg PO BID empagliflozin 25 mg tablet 25 mg PO DAILY Rx Instructions: 1/2 tablet a day clopidogrel 75 mg tablet 75 mg PO DAILY Patient Comments: TAKE 1 TABLET BY MOUTH ONCE DAILY atorvastatin 80 mg tablet 80 mg PO DAILY Qty: 90 3RF lisinopril-hydrochlorothiazide 20-25 mg tablet 1 tab PO DAILY Qty: 30 2RF atenolol 50 mg tablet 50 mg PO DAILY Qty: 90 2RF warfarin 7.5 mg tablet 7.5 mg PO DAILY Qty: 14 2RF insulin aspart U-100 100 UNIT/ML solution 50 unit SQ BID Referrals Follow up/Referrals: Jersey Lira MD [Primary Care Provider] - See instructions Clinical Impressions Clinical Impression: Acute CVA (cerebrovascular accident), Dizziness, Vertigo Discharge ED Provider: Mario Henry General Adult HPI <Mario Henry MD - Last Filed: 02/21/23 22:44> General Chief complaint: Dizziness Stated complaint: possible took too much medicine, dizzy Time Seen by Provider: 02/21/23 22:03 Mode of Arrival: Ambulatory Limitations: No Limitations Description of Symptoms (Recalled from ER Triage Doc. by RN): Pt states he has been dizzy today, and thinks he has taken too much warfarin. Pt also states he feels like his BGL has bottomed out , and he feels shaky. Pt states he checked his sugar before coming in, and it was 143. Pt is on atenolol and lisinopril. Denies any falls. A&OX4. FSBS upon arrival 82. History of Present Illness HPI narrative: Patient is a 73-year-old male with a known history of a cerebellar infarct subsequently diagnosed with an LV thrombus now on Coumadin and has been therapeutic presented today with acute dizziness. Unsure as to exactly when this began he attributes to believe he has had too much warfarin or thinks that his blood sugar has bottomed out as he feels shaky. He states he has had some coordination difficulties but otherwise is walking normally has not had any visual changes. Has a known LV thrombus and is followed by Dr. See for this. States that his INR was recently 2.1 and they recently went up on his Coumadin dosing where he is taking 7 1/2 mg daily but an additional 1 mg on Friday and Friday. Related Data Home Medications Medication Instructions Recorded Confirmed glipizide 5 mg tablet 5 mg PO BID Diabetes 05/02/17 02/21/23 omeprazole 20 mg capsule,delayed 20 mg PO BID GERD 05/02/17 02/21/23 release insulin aspart U-100 100 unit/mL 50 unit SQ BID DM 02/26/18 02/21/23 subcutaneous solution clopidogrel 75 mg tablet 75 mg PO DAILY 01/07/23 02/21/23 empagliflozin 25 mg tablet 25 mg PO DAILY 01/07/23 02/21/23 Previous Rx's Medication Instructions Recorded atorvastatin 80 mg tablet 80 mg PO DAILY Cholesterol #90 tabs 10/18/21 atenolol 50 mg tablet 50 mg PO DAILY htn #90 tabs 05/22/22 lisinopril 20 1 tab PO DAILY htn #30 tabs 05/22/22 mg-hydrochlorothiazide 25 mg tablet warfarin 7.5 mg tablet 7.5 mg PO DAILY #14 tabs 12/09/22 Allergies Allergy/AdvReac Type Severity Reaction Status Date / Time No Known Allergies Allergy Verified 01/07/23 08:48 [facility] <J Luis Henry MD - Last Filed: 02/21/23 22:44> [facility] Disclaimer: The information contained in this section may have been updated after the patient was seen, as this information can be updated by other users. Medical History (Updated 02/22/23 @ 00:52 by Saji Brown MD) Abnormal EKG Belching Cryptogenic stroke CVA (cerebral vascular accident) Diarrhea Implantable loop recorder present Surgical History (Updated 01/07/23 @ 08:54 by Barbara Ramirez) History of cardiac cath History of colonoscopy History of heart artery stent History of loop recorder Family History Other Cancer Parkinsons disease
--- NOTE | 2023-02-21 22:40 | PC.NURSE ---
patient gone to CT at this time.
[2023-02-21 22:48] LABS: Troponin I < 0.01 ng/ml (0.00-0.034)
--- NOTE | 2023-02-21 22:50 | PC.NURSE ---
called to come back to ct at this time by fortino henry
--- NOTE | 2023-02-21 23:01 | PC.NURSE ---
patient back in room at this time
--- NOTE | 2023-02-21 23:04 | PC.NURSE ---
Dr. Henry in room with pt
--- NOTE | 2023-02-21 23:16 | PC.NURSE ---
FSBG 102.
[2023-02-21 23:22] LABS: POC Glucose,Bedside 102 (70-110)
[2023-02-22] VITALS (13 sets, daily range): BP systolic 136–152; BP diastolic 77–86; PULSE 61–88; RESP 12–19; TEMP 36.6–36.8; O2SAT 95–98; BMI 33.5
--- NOTE | 2023-02-22 00:26 | PC.NURSE ---
speaking with stroke navigator at this time at [facility]
--- NOTE | 2023-02-22 00:48 | PC.NURSE ---
Patient on waitlist for [facility]. Patient to be admitted under hospitalist service until time of transfer. Notified House development administrator for bed assignment.
--- NOTE | 2023-02-22 00:52 | PC.NURSE ---
OBSERVATION ADMISSION TO 207 WITH DX OF CVA TO HOSPITALIST.
--- NOTE | 2023-02-22 01:03 | EXP.HP ---
History of Present Illness *Admission Date: 02/22/23 *Reason for visit:: acute CVA *History of present illness: 73 year old male presented to the ED tonight for c/o dizziness. PMHX gerd, htn, hld, dm, stent to LAD in April, and a LV thrombus that is on Coumadin. states that pt was sleeping and woke up at 630 p.m. and started c/o dizziness. Dizziness is worse when pt looks to the left. His ED work revealed new focal calcifications of the left vertebral artery. Dominant left vertebral artery. The ED physician spoke with [facility] and the pt is placed on the waitlist. Since no bed was available at time the ED physician consulted the hospitalist team for further medical management. His ED work up consisted of unremarkable lab work. His head CT revealed a chronic meningioma which is known. His last visit with neurology was the beginning of December. No intracranial hemorrhage. His head and neck CTA reveal no large vessel occlusion, mild calcific plaque in bilateral common carotids arteries, clacific plaque obscures in the left vertebral artery, and atretic right vertebral artery. The ED physician reports that the bereavement program coordinator at [facility] recommended to continue warfarin and allow for systolic blood pressures between 130-160. [facility] Disclaimer: The information contained in this section may have been updated after the patient was seen, as this information can be updated by other users. Medical History (Updated 02/22/23 @ 12:36 by Dalton Moulton MD) Abnormal EKG Belching Cryptogenic stroke CVA (cerebral vascular accident) Diarrhea Implantable loop recorder present Surgical History History of cardiac cath History of colonoscopy History of heart artery stent History of loop recorder Family History Other Cancer Parkinsons disease Social History Smoking Status: Never smoker alcohol intake: never substance use type: denies use current occupational status: other Travel in the last 8 weeks: None adopted: No caregiver/support person: No foster care: No household members: spouse housing: house lives independently: Yes (with spouse) marital status: service: Yes long term: No current occupation: remodeling contractor current occupational exposures/hazards: No caffeine: Yes Review of Systems ENT Ears, Nose, Mouth, and Throat: Reports dizziness *Cardiovascular Cardiovascular: Reports system reviewed and no additional complaints, except as documented *Respiratory Respiratory: Reports system reviewed and no additional complaints, except as documented *Gastrointestinal Gastrointestinal: Reports system reviewed and no additional complaints, except as documented *Genitourinary Genitourinary: Reports system reviewed and no additional complaints, except as documented *Musculoskeletal Musculoskeletal: Reports system reviewed and no additional complaints, except as documented *Neurologic Neurologic: Reports dizziness Meds Home Medications and Allergies Home Medications Medication Instructions Recorded Confirmed Type glipizide 5 mg tablet 5 mg PO BIDWMEAL Diabetes 05/02/17 02/22/23 History omeprazole 20 mg capsule,delayed 20 mg PO DAILY GERD 05/02/17 02/22/23 History release insulin aspart U-100 100 unit/mL 50 unit SQ BID DM 02/26/18 02/21/23 History subcutaneous solution atorvastatin 80 mg tablet 80 mg PO DAILY Cholesterol #90 tabs 10/18/21 02/21/23 Rx atenolol 50 mg tablet 50 mg PO DAILY htn #90 tabs 05/22/22 02/21/23 Rx lisinopril 20 1 tab PO DAILY htn #30 tabs 05/22/22 02/21/23 Rx mg-hydrochlorothiazide 25 mg tablet clopidogrel 75 mg tablet 75 mg PO DAILY 01/07/23 02/21/23 History empagliflozin 25 mg tablet 12.5 mg PO DAILY Diabetes 01/07/23 02/22/23 History terbinafine HCl 1 % topical cream 1 applic
[2023-02-22 01:11] LABS: Hemoglobin A1C 5.2 % (4.0-6.0)
--- NOTE | 2023-02-22 01:13 | PC.NURSE ---
0110 RECEIVED PHONE REPORT FROM TANVI RN/ED NURSE. PATIENT IS 73 YO MALE WITH POSSIBLE CVA . HAS LV THROMBUS UNDER CURRENT TREATMENT OF DR NOLEN. NKA. MAY COME BY W/C.
--- NOTE | 2023-02-22 01:34 | PC.NURSE ---
Pt arrived to the floor via wheelchair @ 0954
[2023-02-22 01:53] LABS: Troponin I < 0.01 ng/ml (0.00-0.034)
--- NOTE | 2023-02-22 02:29 | PC.NURSE ---
NO STROKE DEFICITS IDENTIFIED. ONLY COMPLAINT AT THIS TIME IS DIZZINESS. PATIENT CURRENTLY AWAITING A BED ASSIGNMENT AT [facility]. SPOUSE AT BED SIDE. PATIENT ASSISTED TO BR. VOIDED. BED ALARM ON A REMINDER TO CALL FOR ASSIST.
[2023-02-22 05:13] LABS: POC Glucose,Bedside 69 (70-110)
--- NOTE | 2023-02-22 05:56 | PC.NURSE ---
PATIENT MADE MAD BECAUSE HE IS REFUSING TO USE CALL [facility] WHEN HE WANTS TO GET UP OOB. WENT HOME. PATIENT SAYS HE IS NO LONGER DIZZY AND FEELS FINE. PATIENT WAITING FOR BED AT [facility]. HAS WHAT LOOKS LIKE A FUNGAL SKIN INFECTION (RING WORM) NOTED ON LEFT LATERAL THIGH. PATIENT SAYS ITCHES AND WILLIS. Sonny DEWITT. NOTIFIED.
[2023-02-22 08:12] LABS: Chloride 107 mmol/L (98-107); Sodium 141 mmol/L (136-145)
[2023-02-22 08:16] LABS: Blood Urea Nitrogen 17 mg/dl (9-20); Calcium 8.9 mg/dl (8.4-10.2); Carbon Dioxide 28 mmol/L (22.0-30.0); Creatinine Clearance Estimated 92 mL/min (50-200); Estimated Glomerular Filt Rate 110 ml/min (>60); GFR (African American) 133 ML/MIN (>60); Glucose 97 mg/dl (74-100)
[2023-02-22 08:19] LABS: Basophils % 0.3 % (0.1-2.0); Eosinophils # 0.1 K/mm3 (0.0-0.4); Hematocrit 46.7 % (42.0-52.0); Hemoglobin 16.1 g/dL (14.1-18.0); Lymphocytes # 1.5 K/mm3 (0.7-4.5); Lymphocytes % 15.5 % (10-50); Mean Corpuscular HGB Conc 34.5 g/dL (31.8-35.4); Mean Corpuscular Volume 92.7 fl (80-94); Mean Platelet Volume 9.2 fl (7.4-10.4); Monocytes # 0.5 K/mm3 (0.1-1.0); Neutrophils # 7.7 K/mm3 (1.8-7.8); Neutrophils % 78.2 % (37.0-80.0); Platelet Count 212 K/mm3 (142-424); Red Blood Count 5.04 M/mm3 (4.60-6.20); Red Cell Distribution Width 13.8 % (11.5-17.5); White Blood Count 9.8 K/mm3 (4.8-10.8)
[2023-02-22 11:03] LABS: POC Glucose,Bedside 133 (70-110)
--- NOTE | 2023-02-22 11:46 | EXP.DC.SUM ---
General Admission date:: 02/22/23 Discharge date: 02/22/23 HPI HPI HPI: 73 year old male presented to the ED tonight for c/o dizziness. PMHX gerd, htn, hld, dm, stent to LAD in April, and a LV thrombus that is on Coumadin. states that pt was sleeping and woke up at 630 p.m. and started c/o dizziness. Dizziness is worse when pt looks to the left. His ED work revealed new focal calcifications of the left vertebral artery. Dominant left vertebral artery. The ED physician spoke with [facility] and the pt is placed on the waitlist. Since no bed was available at time the ED physician consulted the hospitalist team for further medical management. His ED work up consisted of unremarkable lab work. His head CT revealed a chronic meningioma which is known. His last visit with neurology was the beginning december. No intracranial hemorrhage. His head and neck CTA reveal no large vessel occlusion, mild calcific plaque in bilateral common carotids arteries, clacific plaque obscures in the left vertebral artery, and atretic right vertebral artery. The ED physician reports that the coding quality coordinator at [facility] recommended to continue warfarin and allow for systolic blood pressures between 130-160. Hospital Course Hospital Course Hospital Course: 73 year old male presented to the ED tonight for c/o dizziness. PMHX gerd, htn, hld, dm, stent to LAD in April, and a LV thrombus that is on Coumadin. states that pt was sleeping and woke up at 630 p.m. and started c/o dizziness. Dizziness is worse when pt looks to the left. His ED work revealed new focal calcifications of the left vertebral artery. Dominant left vertebral artery. The ED physician spoke with [facility] and the pt is placed on the waitlist. Since no bed was available at time the ED physician consulted the hospitalist team for further medical management. His ED work up consisted of unremarkable lab work. His head CT revealed a chronic meningioma which is known. His last visit with neurology was the beginning december. No intracranial hemorrhage. His head and neck CTA reveal no large vessel occlusion, mild calcific plaque in bilateral common carotids arteries, clacific plaque obscures in the left vertebral artery, and atretic right vertebral artery. The ED physician reports that the coding quality coordinator at [facility] recommended to continue warfarin and allow for systolic blood pressures between 130-160. No dizziness by morning. Feeling like he is at his baseline function. Evaluated by PT. Stable for discharge home. Problems and plan as follows below: ACUTE CVA Vertebral artery stenosis -hx of htn, hld, stent placed on 05/08/22, loop recorder placed for suspicion of afib, known LV thrombsis. His head CT revealed a chronic meningioma which is known, with no intracranial hemorrhage. His head and neck CTA reveal no large vessel occlusion, mild calcific plaque in bilateral common carotids arteries, clacific plaque obscures in the left vertebral artery, and atretic right vertebral artery. Extensive discussion with stroke nurse at [facility]. Given the resolution of his symptoms, I feel patient is stable to discharge home. Would like close follow-up with neuro however. Patient provided with disc of his CTAs. Discussion with stroke nurse to coordinate outpatient MRI and close follow-up with neuro at [facility]. Continuing warfarin and relaxing blood pressure control. Holding his lisinopril but continuing atenolol at this time. Continue Plavix along with his warfarin. Already on high intensity statin of 80 mg Lipitor. Evaluated by physical therapy, at baseline function. Stable for discharge with close follow-up. CAD HTN HLD Continuing home regimen as per below. DM -Continue home regimen of insulin, glipizide, empagliflozin. A1c well controlled at 5.2 returned after he discharged. [place] considering an adjustment in his diabetes regimen at home, would likely recommend holding glip
--- NOTE | 2023-02-22 14:03 | HMH.PTEV ---
Physical Therapy Evaluation Rehab PT IP Evaluation Start: 02/22/23 12:53 Freq: ONCE Status: Active Protocol: Document 02/22/23 13:51 PDESEROUX (Rec: 02/22/23 14:03 [email or web address] [email or web address]) Subjective/History History History Pt. is a 73 year old male who presents to [facility] 2nd floor Inpatient setting w/ c/o acute and constant dizziness of insidious onset 1 day ago. Pt. reports waking up in the evening yesterday(02/22/23) w/ c/o dizziness. Pt. reports he drove and admitted self to the Hospital secondary to c/o of dizziness. Pt. reports his being scheduled for an Outpatient appointment at [facility] in a few days to further assess c/o dizziness. Pt. lives in a 1- story home w/ his . Pt. reports IND. w/ ADLs w/o AD prior to being admitted into the hospital. 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 PMH inclues HTN, DM, Hyperlipidemia, and LAD. Subjective Subjective Pt. reports, I feel good, the Doctor said I get to go home this afternoon. Pt. was seated upright in recliner w/ in room upon entry in pt. 's hospital room. Pt. agreed to let Physical Therapist into hospital room and participate in the initial evaluation this date. New diagnosis of cancer in past 12 No months? Rehab PT IP Eval Objective Appearance Patient Behavior Appropriate,Cooperative Patient Orientation Person,Place,Age,Day of Week, Situation Difficulty following instructions none Speech Pattern Clear,Appropriate,Coherent Ambulation Patient Able to Ambulate Yes Ambulation Observation IP General Gait Pattern Observation No Deviations/Normal Ambulation Distance (feet) 30 Ambulation Assistive Device None Ambulation Ability Independent Balance Ability to Arise Able, uses arms to help Sitting Balance Steady, safe Standing Balance
--- NOTE | 2023-02-24 15:52 | CARE MANAGER ---
Contacted patient related to hospital discharge. He states he is doing well. He is to follow up with Yarsani in a week and with Dr. Lira on Mar.04. ANGIE Gage
== END 2023-02-22 14:55 | disposition home or self-care (01) ==
LOC: ER 02-22 00:52 → 2ND 02-22 00:55
PROVIDERS: Nurse Practitioner Critical Care Medicine; Student in an Organized Health Care Education/Training Program; Admitting Provider Internal Medicine Adolescent Medicine; Emergency Provider Emergency Medicine; PCP Emergency Medicine; Visit Provider Internal Medicine Adolescent Medicine
DX: R42 Dizziness and giddiness (principal); I65.03 Occlusion and stenosis of bilateral vertebral arteries; I25.10 Atherosclerotic heart disease of native coronary artery without angina pectoris; I10 Essential (primary) hypertension; E78.5 Hyperlipidemia, unspecified; E11.69 Type 2 diabetes mellitus with other specified complication; Z79.01 Long term (current) use of anticoagulants; Z79.84 Long term (current) use of oral hypoglycemic drugs; Z79.899 Other long term (current) drug therapy
CPT/HCPCS: G0379; 36415; 70450; 70496; 70498; 80048; 80053; 82962; 83036; 84484; 85025; 85610; 93005; 97161; G0378; J2405; Q9967

== ENCOUNTER → 2023-03-24 07:17 | Outpatient (CLI) | payer MEDICARE, OTHER, SELFPAY ==
--- NOTE | 2023-03-24 07:52 | CA_ITS ---
APPROVED REPORT EXAM: Limited 2D Echocardiogram with contrast Business Intelligence Architect: Lesa Jasso CRT Ht: 5 ft 7 in Wt: 224lbs BSA: 2.12 BP: 140/81 mmHg Indications: CAD, CVA, Loop recorder, definity to r/o thrombus 2D Dimensions LVOT 1.92 cm (M/F) 1.5-2.5 M-Mode Dimensions LA Diam 4.00 cm (1.9-4.0) Ao Diam 3.88 cm (2.0-3.7) Other Information Study Quality: Technically Difficult Conclusion This is a limited TTE to evaluate for resolution of LV thrombus. Limited windows were obtained. Ultrasound enhancing agent was administered. This is a technically difficult study due to poor acoustic windows. The left ventricle appears normal in size. There is normal LV systolic function. LVEF is 60%. Ultrasound enhancing agent administration demonstrates no evidence of apical LV thrombus. The previously visualized layered filling defect is no longer seen in this study. Electronically signed by : Sintia Price MD 03/24/2023 23:37:00
== END ==
PROVIDERS: PCP Emergency Medicine; Visit Provider Nurse Practitioner
DX: I25.10 Atherosclerotic heart disease of native coronary artery without angina pectoris (principal); R94.31 Abnormal electrocardiogram [ECG] [EKG]
CPT/HCPCS: 93308; Q9957

== ENCOUNTER 2025-02-18 14:27 | Outpatient (CLI) | payer MEDICARE, SELFPAY ==
--- OUTSIDE RECORDS SUMMARY | 2025-02-18 14:33 | XMS_ITS | Clinical Summary ---
Author Organization [facility] Address [address] [place] [id number] Care Team Providers Care Roll Wrapper Name Role Phone Jersey Lira MD Primary Care Provider Allergies No known active allergies Medications verapamil SR (CALAN-SR) 120 MG CR tablet 06/19/2018 Active lisinopril-hydroc hlorothiazide (PRINZIDE,ZESTORE TIC) 10-12.5 MG per tablet 1 08/25/2018 Active atenolol (TENORMIN) 50 MG tablet 07/10/2018 Active loratadine (CLARITIN) 10 MG tablet Take 10 mg by mouth Daily. Active amoxicillin-clavu lanate (AUGMENTIN) 875-125 MG per tabletIndications :Acute recurrent pansinusitis Take 1 tablet by mouth 2 (Two) Times a Day. 20 tablet 09/07/2018 Active Active Problems No known active problems Social History Tobacco Use Types Packs/Day Years Used Date Smoking Tobacco: Former Cigarettes 0.5 3 Abuse Screen Answer Date Recorded Unsafe at Home or Work/School Not on file Feels Threatened by Someone? Not on file 01/2023 Does Anyone Keep You from Co ntacting Others or Doint Things Outside the Home? Not on file 02/04/2023 Physical Sign of Abuse Present Not on file 1 Housing Stability Answer Date Recorded Current Living Arrangements Not on file 01/26 Potentially Unsafe Housing Conditions Not on betty e 02/04/2023 Family and Community Support Answer Saúl e Recorded Help with Day-to-Day Activities Not on file 02/04/2023 Lonely or Isolated Not on file 02/04/2023 Employment Answer Date Recorded Do you want help finding or keeping work or a lucius b? Not on file 02/04/2023 Disabilities Answer Date Recorded Concentrating, Remembering, or Making Decisions Difficulty Not on file 02/04/2023 Doing Errands Independently Difficulty Not on fi le 02/04/2023 Education Answer Date Recorded Help with school or training? Not on file Preferred Language Not on file 02/04/2023 Sex and Gender Information Value Date Recorded Sex Assigned at Not on file Legal Sex Male 1:46 PM EDT Gender Identity Not on file Sexual Orientation Not on file Last Filed Vital Signs Vital Sign Reading Time Taken Comments Blood Pressure 140/88 09/07/2018 8:43 AM EDT Pulse 64 09/07/2018 8:43 AM EDT Temperature 37.1 C (98.8 F) 09/07/2018 8:43 AM EDT Respiratory Rate 14 09/07/2018 8:43 AM EDT Oxygen Saturation 98% 09/07/2018 8:43 AM EDT Inhaled Oxygen Concentration - - Weight 110 kg (242 lb) 09/07/2018 8:43 AM EDT Height 167.6 cm (5' 6 ) 09/07/2018 8:43 AM EDT Body Mass Index 39.06 09/07/2018 8:43 AM EDT Plan of Treatment Health Maintenance Due Date Last Done Comments TDAP/TD VACCINES (1 - Tdap) 02/06/1969 Pneumococcal Vaccine 50+ (1 of 1 - PCV) 1999 ZOSTER VACCINE (1 of 2) 1999 ANNUAL PHYSICAL 09/07/2018 HEPATITIS C SCREENING 09/07/2018 RSV Vaccine - Adults (1 - 1-dose 75+ series) INFLUENZA VACCINE 11/26/2024 02/08/2022 COVID-19 Vaccine (2 - 2024- season) 12/27/202410/2020 HEMOGLOBIN A1C Discontinued 03/08/2014 Medical Devices Implanted Type Area Food And Beverage Attendant Device Identifier Shelf Expiration Date Model / Serial / Lot Cardiac Heart Monitor-11/12/19 23 Implanted:11/11 (Quantity not on file) [employer] [id number] / [id number] / Description:1.5T 2400 GAUSS/ CM Procedures Procedure Name Priority Date/Time Associated Diagnosis Comments HEMOGLOBIN A1C Routine 03/08/2014 11:53 AM EST from Last 3 Months or Most Recently Relevant to Health Maintenance Results * (ABNORMAL) Hemoglobin A1c (03/08/2014 11:53 AM EST) Hemoglobin A1C 6.5(H) 4.00 - 6.00 % [facility] Comment: DF by IF @ 03/08/2014 12:43 The [place] [employer] recommends maintenance of Hemoglobin A1C at 7.0% or lower. Goals for Hemoglobin A1C reduction may need to be modified if hypoglycemia is a problem. Mean Bld Glu Estim. 135 mg/dL [facility] Blood specimen (specimen) 03/08/2014 11:53 AM EST Narrative [facility] - 03/08/2014 12:43 PM EST Specimen Type: Blood us Jersey Pierce MD LAB BLOOD ORDERABLES Final Res ult [facility] [address] [phone] from Last 3 Months or Most Recently Relevant to Health Maintenance Insurance MEDICARE A & B Member Subscriber Plan / Payer (Ef fective 2014-Present) Name:Jarred Oneill Member ID:[id number] Relation to Subscriber:Self Name:Jarred Oneill Subscriber ID:[id number] Payer ID:[id number] Group ID:Not on file Type:Not on file Address: [address] [place] [address] Care Teams Roll Wrapper Relationship Specialty Start Date End Date Jersey Lira MD [address] [place] [address] PCP - General Emergency Medicine 03/03/23
--- OUTSIDE RECORDS SUMMARY | 2025-02-18 14:33 | XMS_ITS | Data Portability ---
Author Organization [facility] [place] Address [address] [place] [address] Care Team Providers Care Hydroelectric Plant Structural Engineer Name Role Phone MICHELLE JEONG Referring Provider Unavailable Assessment No assessment recorded. Plan of Treatment Reminders Order Date Submit Date Provider Last Modified By Organization Details Last Modified Time Details Appointments None recorded. Lab urinalysis , dipstick 2022 [email or web address] [address], [address], 3 12:09:35 Referral None recorded. Procedures bladder scan (PROC) 2022 [email or web address], [address], 12:09:35 Surgeries None recorded. Imaging None recorded. Medication Orders None recorded. Patient TargetsNo targets recorded. Patient InstructionsNo instructions recorded. Reason for Referral None Reported. Results Created Date Observation Date Name Description Value Unit Range Abnormal Flag Note LastModifiedBy Organization Detail LastModifiedTime 11/07/1911/06/2022 bladd er scan (PROC ) Calculated Residual Urine: 51 cc Not Available [address], [address], 11/06/2022 09:44:05 11/07/19 23 11/06/2022 urina lysis , dipst ick Leukocytes (reference range) negati ve Not Available [facility] [address] [place], [address], 11/06/2022 09:44:06 11/07/19 23 11/06/2022 urina lysis , dipst ick Nitrite (reference range:) negati ve Not Available [address], [address], 11/06/2022 09:44:06 11/07/19 23 11/06/2022 urina lysis , dipst ick Urobilinogen (reference range) 0.2 Not Available [address], [address], 11/06/2022 09:44:06 11/07/19 23 11/06/2022 urina lysis , dipst ick Protein (reference range) negati ve Not Available [address], [address], 11/06/2022 09:44:06 11/07/19 23 11/06/2022 urina lysis , dipst ick pH (reference range 5-8.5) 5.0 Not Available [address], [address], 11/06/2022 09:44:06 11/07/19 23 11/06/2022 urina lysis , dipst ick Blood (reference range:) negati ve Not Available [address], [address], 11/06/2022 09:44:06 11/07/19 23 11/06/2022 urina lysis , dipst ick Specific [place] (reference range) 1.020 Not Available [address], [address], 11/06/2022 09:44:06 11/07/19 23 11/06/2022 urina lysis , dipst ick Ketone (reference range) negati ve Not Available [facility], [address], 11/06/2022 09:44:06 11/07/19 23 11/06/2022 urina lysis , dipst ick Bilirubin (reference range) negati ve Not Available [address], [address], 11/06/2022 09:44:06 11/07/19 23 11/06/2022 urina lysis , dipst ick Glucose (reference range) [address] [facility] [address], [address], 11/06/2022 09:44:06 Result Notes None recorded. Problems Name Problem SNOMED Code Status Onset Date Resolution Date Notes Provider Name and Address Organization Details Recorded Time Heart disease 96648604 Active 2022 Melanie burelson [facility] - [facility] - [place] & [place] 3 09:13:59 Hypertensiv e disorder 62824961 Active 2022 Melanie burleson, [facility] - [facility] - [place] & [place] 3 09:14:03 Acute stroke 5224024009917 04 Active 2022 Melanie burleson [facility] - [facility] - [place] & [place] 3 09:14:14 Diabetes mellitus 09181726 Active 2022 Melanie burleson, [place] - [facility] - [place] & [place] 3 09:14:19 Arthritis 5119226 Active 2022 Melanie burleson [facility] [place] 3 09:14:25 Denture present 129675221 Active 2022 Melanie burleson, [place] - [facility] [place] 3 09:14:33 Problem Notes None recorded. Procedures Surgical History Date Name Laterality Status Provider Name and Address Organization Details Recorded Time [facility] [place] 11/06/2022 09:15:32 procedure on shoulder [facility] [place] 11/06/2022 09:15:42 cholecystectomy [facility] [place] 11/06/2022 09:15:49 procedure on heart completed Francisco JAMIL [facility] & [place] 11/06/2022 09:15:56 Imaging Results None recorded. Procedure Notes None recorded. Medical Equipment None Reported. Allergies No known drug allergies Medications Name Sig Start Date Stop Date Status Note LastModified by Organization Details LastModified Time atorvastatin 80 mg tablet TAKE 1 TABLET BY MOUTH ONCE DAILY FOR CHOLESTEROL active Not Available Not Available Not Available clopidogrel 75 mg tablet TAKE 1 TABLET BY MOUTH ONCE DAILY active Not Available Not Available No t Available sulfamethoxa zole 800 mg-trimethop rim 160 mg tablet TAKE 1 TABLET BY MOUTH TWICE DAILY FOR 5 DAYS active Not Available Not Available No t Available tamsulosin 0.4 mg capsule TAKE 1 CAPSULE BY MOUTH ONCE DAILY active Not Available Not Available No t Available lisinopril 20 mg-hydrochlo rothiazide 25 mg tablet TAKE 1 TABLET BY MOUTH ONCE DAILY FOR HIGH BLOOD PRESSURE active Not Available Not Available No t Available atenolol 50 mg tablet TAKE 1 TABLET BY MOUTH ONCE DAILY FOR HIGH BLOOD PRESSURE active Not Available Not Available No t Available finasteride 5 mg tablet TAKE 1 TABLET BY MOUTH ONCE DAILY active Not Available Not Available No t Available Brilinta 90 mg tablet TAKE ONE TABLET BY MOUTH TWICE DAILY active Not Available Not Available No t Available Jardiance 25 mg tablet active Not Available Not Available No t Available Vitals Date Recorded Body height Body mass index (BMI) Body weight Body temperature Provider Name and Address Organization Details Last Updated DateTime 11/06/2022 172.72 cm 33.9 kg/m2 331669.1 g 97.6 [degF] [facility] [place] 11/06/2022 09:11:41 Social History None recorded. Functional Status Question Answer Note LastModified by Organization D etails LastModified Time What is your level of alcohol consumption? None Information not available 11/06/2022 Mental Status None recorded. Family History Relationship Description Onset Age of this Age Resolved Age Notes LastModified by Organization Details LastModified Time Mother Malignant neoplastic disease DEC [email or web address] Not available 2022 09:14:49 Father Pneumonia DEC [email or web address] Not availab le 11/06/2022 09:14:59 Brother Family history unknown [email or web address] Not available 2022 09:15:12 Sister Family history unknown [email or web address] Not available 2022 09:15:12 Medical History No medical history recorded. Past Encounters Encounter ID Performer Location Encounter Start Date Encounter Closed Date Diagnosis/Indication Diagnosis SNOMED-CT Code Diagnosis ICD10 Code Diagnosis IMO Codes Diagnosis Note [id number] Elvin Grijalva Jr, MD [facility] [address] [address] 11/06/2022 09:05:21 11/06/2022 09:43:24 Nocturia 548614318 R35.1 72-year-ol d white male with nocturia 3-4 times an evening. He denies any daytime issues. His bladder scan today shows a residual of 51 cc. Risk factors for the nocturia the glucosuria and drinking up to bedtime. We have recommende d decreasing fluids to 3 hours prior to bed and see how he does. I recommende d discontinu ing the finasterid e but he may stay on the tamsulosin if he feels like this helpful at all. Health Concerns Section Related Observation LastModified by Organization Detai ls LastModified Time None Recorded Concern Status LastModified by Organization Details LastModified Time None Recorded Advance Directives Directive None Recorded Payers Insurance Date Sequence Insurance Name Policy Number Policy Manjarrez Covered Member ID Manjarrez Member ID Guarantor Name 11/06/2022 2 [employer] Jarred Oneill [id number] Jarred Oneill 12/13/2022 2 [employer] (MEDICARE SUPPLEMENT) Jarred Oneill [id number] Jarred Oneill 11/03/2022 1 [place]ICARE[place] Jarred Oneill [id number] Jarred Oneill Notes Date Note Type Note Provider Name and Address Organization Details Recorded Time 11/06/2022 text/html Patient is a 72-year-old white male referred for nocturia. Patient states he gets up at night 3-4 times. States that when he wakes up he has an urge and goes the bathroom but only small amount his voided. He was placed on tamsulosin and finasteride last month by his primary care physician. States he is seen no improvement with those medications. He denies any daytime frequency or urgency. He does drink fluids up to bedtime. He is diabetic and there is lot of glucose in his urine today. Elvin Grijalva Jr, MD [address] [place] [address], [address], [place], [address], [facility] - [place] & [place] 11/06/2022 14:24:20
--- NOTE | 2025-02-18 15:15 | CA_ITS ---
APPROVED REPORT EXAM: Comprehensive 2D, Doppler, and color-flow Echocardiogram Paint Striping Machine Operator: DARIUS Santos, RVS Ht: 5 ft 7 in Wt: 215lbs BSA: 2.09 BP: 160/75 mmHg Indications: CAD, Looprecorder, HTN Echo Enhancing Agent Indication: Endocardial border delineation Agent(s) / Amount(s) Used: 2 cc Definity cc 2D Dimensions IVSd 1.29 cm LVEF (Visual) 48.30 % PWd 1.08 cm LA Volume 66.40 mL LVDd 4.54 cm LA Volume Index 31.00 mL/m2 (M/F) 16-34 LVDs 3.44 cm Left Atrium 3.65 cm M-Mode Dimensions LA Diam 3.88 cm (1.9-4.0) EPSs 0.34 cm TAPSE 2.15 (<1.7) LV Diastology E Decel Time 240 (160-240 msec) E/A Ratio 0.77 MED A' 10.20 cm/s LAT A' 11.30 cm/s Aortic Valve DARREL Index 1.16 cm2/m2 AoV Peak Martinez. 108.0 (50-130 cm/s) AO Peak GR. 4.70 mmHg AO Mean GR. 2.40 (<5 mmHg) AO VTI 23.4 (18-25 cm) DARREL (VTI) 2.48 (2.5-4.5 cm2) Mitral Valve MV A Velocity 68.0 (40-130 cm/s) E/A Ratio 0.77 Left Ventricle The left ventricle is normal size. Left ventricular systolic function is normal. The left ventricular ejection fraction is within the normal range. There is increased left ventricular wall thickness. There is normal LV segmental wall motion. The left ventricular diastolic function is normal. No left ventricle thrombus noted on this study. LVEF is 55% Right Ventricle The right ventricle is mildly dilated. The right ventricular systolic function is normal. Atria The left atrium is mildly dilated. The right atrium size is normal. There is no color Doppler evidence of interatrial shunt. Aortic Valve The aortic valve is mildly thickened. There is no hemodynamically significant aortic valvular stenosis. No aortic regurgitation is present. Mitral Valve The mitral valve is normal in structure. No evidence of mitral valve stenosis. Trace mitral regurgitation is present. Tricuspid Valve The tricuspid valve leaflets are thin and pliable. Trace tricuspid regurgitation. There is insufficient TR jet to estimate RVSP. Pulmonic Valve The pulmonary valve is grossly normal in structure. Trace pulmonic valve regurgitation is present. Great Vessels The aortic root is normal in size. IVC is normal in size and collapses >50% with inspiration. Pericardium There is no pericardial effusion. Other Information Study Quality: Technically Difficult Conclusion Normal biventricular systolic function. Mild RV dilation. Mild LA dilation. No significant valvular stenosis or regurgitation. Electronically signed by : Sintia Price MD 02/27/2025 00:44:53
[2025-02-18] MEDS: DEFINITY US ECHO CONTRAST 2ML INJ 2 MG IV (15:55)
== END 2025-02-18 23:59 | disposition home or self-care (01) ==
LOC: RT 14:27
PROVIDERS: Visit Provider Nurse Practitioner
DX: I11.9 Hypertensive heart disease without heart failure (principal); I25.10 Atherosclerotic heart disease of native coronary artery without angina pectoris; Z45.09 Encounter for adjustment and management of other cardiac device
CPT/HCPCS: 93306; Q9957